=== PATIENT | female | born 2000 | race Caucasian/White ===

== ENCOUNTER 2023-05-20 18:11 | Outpatient (REF) | payer MEDICAID, OTHER, SELFPAY ==
[2023-05-21 11:32] LABS: CT PCR NOT DETECTED (Not Detect.); NG PCR NOT DETECTED (Not Detect.)
[2023-05-21 13:10] LABS: BV Int Neg Control Negative (Negative); BV Int Pos Control Positive (Positive)
== END 2023-05-20 18:12 | disposition home or self-care (01) ==
LOC: HO.HHCLNP 18:11
PROVIDERS: Visit Provider Advanced Practice Midwife
DX: Z11.3 Encounter for screening for infections with a predominantly sexual mode of transmission (principal); N89.8 Other specified noninflammatory disorders of vagina
CPT/HCPCS: 0353U; 87480; 87510; 87660

== ENCOUNTER 2023-07-17 13:57 | Outpatient (REF) | payer MEDICAID, OTHER, SELFPAY | END 2023-07-17 13:58 | disposition home or self-care (01) | LOC: HO.CHCLDS 13:57 | PROVIDERS: Visit Provider Registered Nurse | DX: R39.9 Unspecified symptoms and signs involving the genitourinary system (principal); N89.8 Other specified noninflammatory disorders of vagina | CPT/HCPCS: 36415; 81513; 87086 ==

== ENCOUNTER 2023-07-23 16:20 | Outpatient (REF) | payer MEDICAID, OTHER, SELFPAY ==
[2023-07-24 09:21] LABS: BV Int Neg Control Negative (Negative); BV Int Pos Control Positive (Positive)
== END 2023-07-23 16:21 | disposition home or self-care (01) ==
LOC: HO.CHCLNP 16:20
PROVIDERS: Visit Provider Registered Nurse
DX: N89.8 Other specified noninflammatory disorders of vagina (principal)
CPT/HCPCS: 87480; 87510; 87660

== ENCOUNTER 2024-01-25 19:45 | Outpatient (REF) | payer MEDICAID, OTHER, SELFPAY ==
[2024-01-27 23:59] LABS: C. trachomatis RNA TMA NOT DETECTED (NOT DETECTED); Candida glabrata RNA NOT DETECTED (NOT DETECTED); Candida species RNA DETECTED (NOT DETECTED); N. gonorrhoeae RNA TMA NOT DETECTED (NOT DETECTED); Trichomonas vaginalis RNA NOT DETECTED (NOT DETECTED)
== END 2024-01-25 19:46 | disposition home or self-care (01) ==
LOC: HO.CHCLNP 19:45
PROVIDERS: Visit Provider Registered Nurse
DX: N94.9 Unspecified condition associated with female genital organs and menstrual cycle (principal)
CPT/HCPCS: 36415; 81513; 87481; 87491; 87591; 87661

== ENCOUNTER 2024-04-19 14:25 | Outpatient (REF) | payer MEDICAID, OTHER, SELFPAY ==
[2024-04-19 16:25] LABS: Bacterial Vaginosis PCR NEGATIVE (Negative); Candida Group PCR DETECTED (Not Detect); Candida glab krusei PCR NOT DETECTED (Not Detect); Trichomonas vaginalis PCR NOT DETECTED (Not Detect)
== END 2024-04-19 14:26 | disposition home or self-care (01) ==
LOC: HO.HHCLNP 14:25
PROVIDERS: Visit Provider Advanced Practice Midwife
DX: R87.612 Low grade squamous intraepithelial lesion on cytologic smear of cervix (LGSIL) (principal); N90.89 Other specified noninflammatory disorders of vulva and perineum
CPT/HCPCS: 0352U; 36415; 87625; 88175

== ENCOUNTER 2024-04-22 15:46 | Outpatient (REF) | payer MEDICAID, OTHER, SELFPAY ==
[2024-04-22 18:10] LABS: MANUAL DIFF FLAG NO
[2024-04-22 18:15] LABS: Basophils Absolute Auto 0.1 X10*3/uL (0.0-0.2); Eosinophils Absolute Auto 0.1 X10*3/uL (0.0-0.4); Eosinophils Percent Auto 0.8 % (0-4); Hematocrit 39.2 % (37.0-47.0); Hemoglobin 13.5 g/dl (12.0-16.0); Imm Gran Abs Auto 0.01 X10*3/uL (0.00-0.03); Imm Gran Pct Auto 0.2 % (0.0-0.4); Lymphocytes Absolute Auto 2.5 X10*3/uL (1.2-4.9); Mean Corpuscular HGB Conc 34.4 g/dl (31.0-35.0); Mean Corpuscular Hemoglobin 29.3 pg (27.0-33.0); Mean Corpuscular Volume 85.2 fL (80.0-98.0); Mean Platelet Volume 9.8 fL (9.4-12.3); Monocytes Absolute Auto 0.5 X10*3/uL (0.1-1.2); Monocytes Percent Auto 7.6 % (2-11); Neutrophils Absolute Auto 3.1 x10*3/uL (2.0-8.3); Neutrophils Percent Auto 50.4 % (45-73); Platelet Count 293 X10*3/uL (160-400); Red Cell Distribution Width 12.9 % (11.0-16.0); White Blood Count 6.2 X10*3/uL (4.8-10.8)
[2024-04-22 18:25] LABS: Alanine Aminotransferase 17 U/L (0-31); Alkaline Phosphatase 41 U/L (39-117); Anion Gap 11 (12-20); Aspartate Amino Transferase 23 U/L (5-31); Bilirubin Total 0.2 mg/dL (0.0-1.0); Blood Urea Nitrogen 11 mg/dL (9-16); Calcium 9.7 mg/dL (8.4-10.2); Carbon Dioxide 24 mmol/L (22-29); Chloride 108 mmol/L (96-108); Estimated Glomerular Filt Rate > 60; Glucose Random 121 mg/dL (60-115); Potassium 3.8 mmol/L (3.3-5.1); Sodium 139 mmol/L (135-145); Total Protein 7.8 g/dL (6.5-8.0)
[2024-04-23 07:11] LABS: Estimated Average Glucose 91 mg/dL; Hemoglobin A1c % 4.8 % (<6.0)
[2024-04-25 08:23] LABS: HIV AB/AG Nonreactive (Nonreactive); HIV Num 1 0.06 S/CO (0.00-0.99)
[2024-04-25 12:44] LABS: RPR Rapid Plasma Reagin NON-REACTIVE (NON-REACTIVE)
[2024-04-26 09:18] LABS: HCV Log PCR <1.18 NOT DETECTED Log IU/mL (NOT DETECTED); HepC Viral Load <15 NOT DETECTED IU/mL (NOT DETECTED)
== END 2024-04-22 15:47 | disposition home or self-care (01) ==
LOC: HO.HHCL 15:46
PROVIDERS: Registered Nurse; Visit Provider Advanced Practice Midwife
DX: B37.31 Acute candidiasis of vulva and vagina (principal); Z11.3 Encounter for screening for infections with a predominantly sexual mode of transmission; N94.9 Unspecified condition associated with female genital organs and menstrual cycle
CPT/HCPCS: 36415; 80053; 83036; 85025; 86592; 87389; 87522

== ENCOUNTER 2024-06-24 18:08 | Outpatient (REF) | payer MEDICAID, OTHER, SELFPAY ==
[2024-06-25 12:43] LABS: CT PCR NOT DETECTED (Not Detect.); NG PCR NOT DETECTED (Not Detect.)
[2024-06-25 16:32] LABS: Bacterial Vaginosis PCR NEGATIVE (Negative); Candida Group PCR NOT DETECTED (Not Detect); Candida glab krusei PCR NOT DETECTED (Not Detect); Trichomonas vaginalis PCR NOT DETECTED (Not Detect)
== END 2024-06-24 18:09 | disposition home or self-care (01) ==
LOC: HO.CHCLNP 18:08
PROVIDERS: Visit Provider Registered Nurse
DX: N94.9 Unspecified condition associated with female genital organs and menstrual cycle (principal)
CPT/HCPCS: 0352U; 87491; 87591

== ENCOUNTER 2024-12-29 09:21 | Outpatient (REF) | payer MEDICAID, OTHER, SELFPAY ==
--- OUTSIDE RECORDS SUMMARY | 2024-12-29 10:13 | XMS_ITS | Encounter Summary ---
Author Organization [employer] Address [address] [facility] [address] [place] [address] Care Team Providers Care Flexible Machining System Machinist Name Role Phone Zora Coley Primary Care Provider [phone] Reason for Visit * Reason Onset Date Comments Appointment Request 02/12/2024 Encounter Details Date Type Department Care Team ([facility] st Contact Info) Description 02/12/2024 Telephone [facility] MED[facility] [address] [place] [address] Zora Coley FNP [address] [place], [place] [id number] Appointment Request Social History Tobacco Use Types Packs/Day Years Used Date Smoking Tobacco: Never Passive Smoke Exposure: Never Smokeless Tobacco: Never Alcohol Use Standard Drinks/Week Comments Never 0 (1 standard drink = 0.6 oz pur e alcohol) Depression Answer Date Recorded Patient Health Questionnaire-9 Score 10 01/25/2024 Patient Health Questionnaire-9 Score 10 01/25/2024 Last PHQ-9: Questionnaire Data Not on file 0 01/25/2024 Housing Stability Answer Date Recorded What is your housing situation today? I have chaz branham 01/25/[address] you li ve. Do you have problems with any of the following? None of the above 01/25/2024 Food Insecurity Answer Date Recorded Within the past 12 months, y ou worried that your food would run out before you got money to buy more: Never True 01/25/2024 Within the past 12 months,th e food you bought just didn't last and you didn't have enough money to get more: Never True 02/2024 Transportation Answer Date Recorded In the past 12 months, has l ack of transportation kept you from medical appts, meetings, work or from getting things needed for daily living? No 01/25/2024 Utilities Answer Date Recorded In the past 12 months, has t he electric, gas, oil or water company threatened to shut off services in your home? No 01/25/2024 Depression Answer Date Recorded Patient Health Questionnaire-2 Score 1 01/25/2024 Comments Unknown Sex and Gender Information Value Date Recorded Sex Assigned at Female 07/21/2022 10:39 AM EDT Legal Sex Female 10:39 AM EDT Gender Identity Female 11/08/2022 1:20 PM EST Sexual Orientation Choose not to disclose 2021 10:39 AM EDT documented as of this encounter Miscellaneous Notes * Telephone Encounter - Memo Jaramillo - 02/23/2024 12:05 PM EDT Tc from pt requesting status performance management consultant. * Telephone Encounter - Adan James - 02/18/2024 2:19 PM EDT Tc from patient calling in regards to the message below * Telephone Encounter - Nora Rausch - 02/12/2024 10:51 AM EDT Tc from pt requesting appt with PCP per last visit notes, leader writer not sure if should schedule a PE or a PAP documented in this encounter Plan of Treatment Upcoming Encounters Date Type Department Care Team (Late st Contact Info) Description 02/06/2025 3:15 PM EDT Office Visit [facility] MED & PEDS [address] [place] [address] Zora Coley FNP [address] [place] [address] documented as of this encounter Visit Diagnoses Not on filedocumented in this encounter Additional Health Concerns Assessment Noted Time PHQ-9 Depression Total Score: 10 024 8:57 PM EDT documented as of this encounter Care Teams Flexible Machining System Machinist Relationship Specialty Start Date End Date Zora Coley FNP [address] [place] [address] PCP - General Family Medicine 05/18/22 documented as of this encounter
--- OUTSIDE RECORDS SUMMARY | 2024-12-29 10:13 | XMS_ITS | Encounter Summary ---
Author Organization [employer] Address [address] [facility] [address] [place] [address] Care Team Providers Care Cap Sizer Name Role Phone Zora Coley Primary Care Provider [phone] Reason for Visit * Reason Onset Date Comments Lab Orders 12/28/2024 Encounter Details Date Type Department Care Team ([facility] st Contact Info) Description 12/28/2024 Telephone [facility] MED & PEDS [address] [place], [place] [phone] Zora Coley FNP [address] [place] [address] Lab Orders Social History Tobacco Use Types Packs/Day Years Used Date Smoking Tobacco: Never Passive Smoke Exposure: Never Smokeless Tobacco: Never Alcohol Use Standard Drinks/Week Comments Never 0 (1 standard drink = 0.6 oz pur e alcohol) Depression Answer Date Recorded Patient Health Questionnaire-9 Score 6 06/24/2024 Patient Health Questionnaire-9 Score 6 06/24/2024 Last PHQ-9: Questionnaire Data Not on file 1 Housing Stability Answer Date Recorded What is [...] Answer Date Recorded Patient Health Questionnaire-2 Score 2 06/24/2024 Internet Access Answer Date Recorded Internet Access Q1 Yes 06/24/2024 Internet Access Q2 Not on file 06/24/2024 Comments Unknown Sex and Gender Information Value Date Recorded Sex Assigned at Female 07/21/2022 10:39 AM EDT Legal Sex Female 10:39 AM EDT Gender Identity Female 11/08/2022 1:20 PM EST Sexual Orientation Choose not to disclose 2021 10:39 AM EDT documented as of this encounter Miscellaneous Notes * Telephone Encounter - Clark Benitez MA - 12/28/2024 2:26 PM EDT T/C to pt to let he know message below. 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 Lab has been ordered, she can complete at her earliest convenience. Thanks! documented in this encounter Plan of Treatment Upcoming Encounters Date Type Department Care Team ([facility] st Contact Info) Description 02/06/2025 3:15 PM EDT Office Visit [facility] MED & PEDS [address] [place] [address] Zora Coley FNP [address] [place] [address] documented as of this encounter Visit Diagnoses Not on filedocumented in this encounter Additional Health Concerns Assessment Noted Time PHQ-9 Depression Total Score: 6 06/24/20 24 9:59 AM EDT documented as of this encounter Care Teams Cap Sizer Relationship Specialty Start Date End Date Zora Coley FNP [address] [place] [id number] PCP - General Family Medicine 05/18/22 documented as of this encounter
--- OUTSIDE RECORDS SUMMARY | 2024-12-29 10:13 | XMS_ITS | Encounter Summary ---
Author Organization [facility] Address [address] [facility] [address] [place] [address] Care Team Providers Care Specifications Checker Name Role Phone Zora Coley Primary Care Provider [phone] Encounter Details Date Type Department Care Team (Latest Contact Info) Description 08/09/2021 Abstract [facility] CONVERSIONS Dental, Provider, DDS Social History Tobacco Use Types Packs/Day Years Used Date Smoking Tobacco: Never Assessed Comments Unknown Sex and Gender Information Value Date Recorded Sex Assigned at Female 07/21/2022 10:39 AM EDT Legal Sex Female 10:39 AM EDT Gender Identity Female 11/08/2022 1:20 PM EST Sexual Orientation Choose not to disclose 2021 10:39 AM EDT documented as of this encounter Plan of Treatment Upcoming Encounters Date Type Department Care Team (Late st Contact Info) Description 02/06/2025 3:15 PM EDT Office Visit [facility] MED & PEDS [address] [place] [address] Zroa Coley FNP [address] [place] [address] documented as of this encounter Visit Diagnoses Not on filedocumented in this encounter Care Teams Specifications Checker Relationship Specialty Start Date End Date Zora Coley FNP [address] [place] [address] PCP - General Family Medicine 05/18/22 documented as of this encounter
--- OUTSIDE RECORDS SUMMARY | 2024-12-29 10:13 | XMS_ITS | Encounter Summary ---
Author Organization [employer] Address [address] [place] [address] Care Team Providers Care Bridge/Structure Inspection Team Leader Name Role Phone Zora Coley Primary Care Provider [phone] Reason for Visit * Reason Onset Date Comments Lab Orders 07/20/2023 Encounter Details Date Type Department Care Team ([facility] st Contact Info) Description 07/20/2023 Telephone [facility] MED[facility] [address] [place] [address] Zora Coley FNP [address] [place], [place] [phone] Lab Orders Social History Tobacco Use Types Packs/Day Years Used Date Smoking Tobacco: Never Passive Smoke Exposure: Never Smokeless Tobacco: Never Alcohol Use Standard Drinks/Week Comments Never 0 (1 standard drink = 0.6 oz pur e alcohol) Depression Answer Date Recorded Patient Health Questionnaire-9 Score 0 10/09/2022 Housing Stability Answer Date Recorded What is your housing situation today? I have chaz branham 07/06/[address] you li ve. Do you have problems with any of the following? None of the above 07/06/2023 Food Insecurity Answer Date Recorded Within the past 12 months, y ou worried that your food would run out before you got money to buy more: Never True 07/06/2023 Within the past 12 months,th e food you bought just didn't last and you didn't have enough money to get more: Never True Transportation Answer Date Recorded In the past 12 months, has l ack of transportation kept you from medical appts, meetings, work or from getting things needed for daily living? No 07/06/2023 Utilities Answer Date Recorded In the past 12 months, has t he electric, gas, oil or water company threatened to shut off services in your home? No 07/06/2023 Depression Answer Date Recorded Patient Health Questionnaire-2 Score 0 10/09/2022 Comments Unknown Sex and Gender Information Value Date Recorded Sex Assigned at Female 07/21/2022 10:39 AM EDT Legal Sex Female 10:39 AM EDT Gender Identity Female 11/08/2022 1:20 PM EST Sexual Orientation Choose not to disclose 2021 10:39 AM EDT documented as of this encounter Miscellaneous Notes * Telephone Encounter - Adan James - 07/20/2023 2:13 PM EDT Tc from Lynn at the chemical lab from [facility] calling to report that she was unable to perform a SureSwab BV test due to specimen transport device did not contain swab. Php Mysql Web Developer attempted to contact office and no reply. If any questions please call Lynn at [phone] documented in this encounter Plan of Treatment Upcoming Encounters Date Type Department Care Team (Late st Contact Info) Description 02/06/2025 3:15 PM EDT Office Visit [facility] MED & PEDS [address] [place] [address] Zora Coley FNP [address] [place] [address] documented as of this encounter Visit Diagnoses Not on filedocumented in this encounter Additional Health Concerns Assessment Noted Time PHQ-9 Depression Total Score: 0 10/09/19 23 11:23 AM EST documented as of this encounter Care Teams Bridge/Structure Inspection Team Leader Relationship Specialty Start Date End Date Zora Coley FNP [address] [place] [address] PCP - General Family Medicine 05/18/22 documented as of this encounter
--- OUTSIDE RECORDS SUMMARY | 2024-12-29 10:13 | XMS_ITS | Clinical Summary ---
Author Organization [employer] Address [address] [facility] 7t [place] [address] Care Team Providers Care Accounting Systems Analyst Name Role Phone Zora oCley CLINICAL EDUCATION SPECIALIST Primary Care Provider [phone] Allergies No known active allergies Medications amitriptyline (Elavil) 10 MG tabletIndicatio ns:Tension Headache Take 10 mg by mouth at bedtime. Active norelgestromin- ethinyl estradiol (Xulane) 150-35 MCG/24HRIndicat ions:Encounter for routine history and physical examination of adult APPLY 1 PATCH TO CLEAN DRY SKIN ONCE A WEEK ON THE SAME DAY FOR 3 WEEKS. REMOVE FOR 1 WEEK, THEN RESTART CYCLE. 9 patch 3 12/10/19 25 Active norelgestromin- ethinyl estradiol (Xulane) 150-35 MCG/24HRIndicat ions:Encounter for routine history and physical examination of adult APPLY 1 PATCH TO CLEAN DRY SKIN ONCE A WEEK ON THE SAME DAY FOR 3 WEEKS. REMOVE FOR 1 WEEK, THEN RESTART CYCLE. 3 patch 3 10/05/19 25 025 Discontinued(Re order (will not trigger notification to Pharmacy)) Active Problems Problem Noted Date Diagnosed Date Chronic pain of both knees 06/26/2024 Assessment & Plan (06/26/2024 11:03 AM EDT): - Chronic, atraumatic; exam unremarkable. Suspect from overuse/extended periods of time standing - Rec trial of compression socks when on feet all day, breaks PRN - Cont symptomatic management - Will check XR out of precaution - Consider physical therapy and/or Ortho referral if pt interested in future Routine health maintenance 11/06/2022 Overview (06/26/2024): Pap: November 2022 LSIL, March 2024 NILM. Repeat: March 2025 Last PE: 06/24/24 Dental: [facility] Dental Contraception: control patches (previously using Nexplanon) Eye Care: referral to [facility] Eye Care for routine screening 06/24/24. List of local Vision Centers also provided Assessment & Plan (06/26/2024 11:07 AM EDT): Plan to get HPV and Flu vaccine at [facility] pharmacy today after visit Recurrent headache 10/09/2022 Overview (06/26/2024): -Amitriptyline 10mg nightly Assessment & Plan (06/26/2024 10:57 AM EDT): -Pt reports that she is using very sporadically, but that is helping to control her symptoms -Cont lifestyle interventions as well Assessment & Plan (08/23/2023 9:58 PM EST): -Previously experiencing 8-12 ROMERO per month. Decreased to 1-2 per month with initiation of amitriptyine 10mg nightly. However, pt not interested in tx with daily medication at this time -Cont APAP/ibuprofen episodic tx PRN -Encouraged to continue multi-factorial approach: small frequent meals, adequate hydration, adequate sleep, stress management, regular exercise as able Abnormal cervical Papanicolaou smear 06/25/2021 Overview (06/26/2024): Pap 12/08/22 LSIL Pap 04/19/24 NILM Next due: plan to repeat March 2025 Resolved Problems Problem Noted Date Diagnosed Date Resolved Date Dental plaque 08/21/2023 06/26/[address] 10/09/2022 Overview (10/09/2022): - Counseled patient that her Nexplanon may remain in place until August of 2023 and it may be removed at any point prior to this if she chooses. She would like to keep this in place for now. Discussed that she may have this removed and replaced at [facility] if she chooses Impacted cerumen of right ear 09/23/2022 07/17/2023 Overview (09/23/2022): Irrigated wihout difficulty. Sympoms resuloved. Assessment & Plan (10/09/2022 11:28 AM EST): Resolved. Assessment & Plan (09/23/2022 9:51 AM EST): Irrigated wihout difficulty. Sympoms or blockage resolved. Mild irrittation possibly from irrigation. Return in 2 weeks for recheck of TM to confirm abnormality is irritation from irrigation. If persists, will refer to ENT. Encounters Date Type Department Care Team Description 12/28/2024 Telephone [facility] MED & PEDS [address] [place] [address] Zora Coley FNP Lab Orders 12/23/2024 Orders Only [facility] MED & PEDS [address] [place] [address] Zora Coley FNP Routine health maintenance (Primary Dx) 12/09/2024 Refill [facility] MEDICINE [address] [place] [address] Zora Coley FNP Encounter for routine history and physical examination of adult 11/29/2024 Telephone [facility] MED & PEDS [address] [place] [address] Zora Coley FNP December recall 10/05/2024 3:00 PM EST Immunization [facility] MED & PEDS [address] [place] [address] Encounter for immunization 10/05/2024 11:15 AM EST Office Visit [facility] OPTOMETRY [address] [place] [address] Tarka, Nilam, OD Hypermetropia, bilateral (Primary Dx); Recurrent headache 10/05/2024 Travel 10/05/2024 Refill [facility] MEDICINE [address] [place] [address] Zora Coley FNP Encounter for routine history and physical examination of adult from Last 3 Months Immunizations Name Administration Dates Next Due HPV 9-Valent 10/05/2024,06/24/2024 Influenza injectable quadriv alent preservative free 07/17/2023,10/09/2022,07/03/2021 Influenza, Injectable, MDCK, preservative free 06/24/2024 Pfizer Covid-19 Vaccine 12+ 01/26/2021, Tdap 07/17/2023 Family History Medical History Relation Name Comments epilepsy Mother Relation Name Status Comments Mother Social History Tobacco Use Types Packs/Day Years Used Date Smoking Tobacco: Never Passive Smoke Exposure: Never Smokeless Tobacco: Never Tobacco Cessation:Counseling Given: Not Answered Alcohol Use Standard Drinks/Week Comments Never 0 [...] not to disclose 2021 10:39 AM EDT Last Filed Vital Signs Vital Sign Reading Time Taken Comments Blood Pressure 115/72 06/24/2024 9:54 AM EDT Pulse 68 06/24/2024 9:54 AM EDT Temperature 36.2 ??C (97.2 ??F) 06/24/2024 9:54 AM ED T Respiratory Rate 18 06/24/2024 9:54 AM EDT Oxygen Saturation 98% 06/24/2024 9:54 AM EDT Inhaled Oxygen Concentration - - Weight 62.7 kg (138 lb 2 oz) 06/24/2024 9:54 AM EDT Height 159.9 cm (5' 2.95 ) 06/24/2024 9:54 AM ED T Body Mass Index 24.51 06/24/2024 9:54 AM EDT Plan of Treatment Upcoming Encounters Date Type Department Care Team (Late st Contact Info) Description 02/06/2025 3:15 PM EDT Office Visit [facility] MED & PEDS [address] [place] [address] Zora Coley, VIVEK [address] [place] [address] Health Maintenance Due Date Last Done Comments Hepatitis B Vaccines (1 of 3 - 19+ 3-dose series) 2017 Dental Oral Exam 01/27/2024 07/28/2023, 07/23/2021 Dental Prophylaxis 02/21/2024 08/21/2023, 08/09/2021 COVID-19 Vaccine ( season) 2024 10/01/2021, 01/26/2021, 01/05/2021 Dental X-Ray: Full Mouth 07/24/2024 07/23/2021 Dental X-Ray: Bitewings 07/29/2024 07/28/2023, 07/23 HPV Vaccines (3 - 3-dose series) 12/28/2024 10/05/2024, 06/24/2024 Family Planning (PISQ) 04/19/2025 04/19/2024 Alcohol/Substance Use Screening 06/24/2025 06/24/2024 Depression Screening 06/24/2025 06/24/2024, 06/24/20 SDOH Screening 06/24/2025 06/24/2024 Tobacco Screening 10/05/2025 10/05/2024 Pap Smear 04/19/2027 04/19/2024, 11/20, 06/18/2021 DTaP/Tdap/Td Vaccines (2 - Td or Tdap) 07/17/2033 07/17/2023 Zoster Vaccines (1 of 2) 2048 RSV Patients and Patients Aged 60 years or older (1 - 1-dose 75+ series) 2073 HIV Screening Completed 04/22/2024, 10/23, 06/18/2021 Hepatitis C Screening Completed 04/22/2024 , 11/11/2022, 06/18/2021 Influenza Vaccine Completed 06/24/2024, , 10/09/2022, Additional history exists HIB Vaccines Aged Out No longer eligi ble based on patient's age to complete this topic Hepatitis A Vaccines Aged Out No long er eligible based on patient's age to complete this topic IPV Vaccines Aged Out No longer eligi ble based on patient's age to complete this topic Meningococcal Vaccine Aged Out No margarette nba eligible based on patient's age to complete this topic Pneumococcal Vaccine: Pediatrics (0 to 5 Years) and At-Risk Patients (6 to 49) Years) Aged Out No longer eligible based on patient's age to complete this topic RSV under 20 months Aged Out No longe r eligible based on patient's age to complete this topic Rotavirus Vaccines Aged Out No longer eligible based on patient's age to complete this topic Procedures Procedure Name Priority Date/Time Associated Diagnosis Comments HEPATITIS C VIRAL RNA, QUANTITATIVE, REAL-TIME PCR Routine 04/22/2024 3:50 PM EDT Genital sore HIV 1/2 ANTIGEN/ANTIBODY, FOURTH GENERATION W/RFL Routine 04/22/2024 3:50 PM EDT Genital sore THINPREP?? IMAGING PAP REFL HPV MRNA(IF ASCUS,ASC-H,LSIL) Routine 04/19/2024 10:46 AM EDT LGSIL on Pap smear of cervix PROPHYLAXIS - ADULT Routine 08/21/2023 8 :00 AM EST BITEWINGS - 4 RADIOGRAPHIC IMAGES Routine 07/28/2023 8:00 AM EST Encounter for dental examination Teeth missing Dental calculus PERIODIC ORAL EVALUATION - ESTABLISHED PATIENT Routine 07/28/2023 8:00 AM EST Encounter for dental examination Teeth missing Dental calculus INTRAORAL - COMPLETE SERIES OF RADIOGRAPHIC IMAGES Routine 07/23/2021 12:00 AM EDT from Last 3 Months or Most Recently Relevant to Health Maintenance Results * Hepatitis C Viral RNA, Quantitative, Real-Time PCR (04/22/2024 3:50 PM EDT) Hepatitis C Viral Load <15 NOT DETECTED NOT DETECTED IU/mL [facility] HCV Log PCR <1.18 NOT DETECTED NOT DETECTED Log IU/mL [facility] Comment:For additional infor aliya, please refer tohttp://education.[employer]/faq/NHG84w9(This link is being provided for informational/educational purposes only.)THIS TEST WAS PERFORMED AT:[facility] [place] [id number] MOLINA MD Blood 04/22/2024 3:50 PM EDT 04/22/2024 6:06 PM EDT Zora Coley CLINICAL EDUCATION SPECIALIST LAB BLOOD ORDERABLES Final Res ult [facility] [address] [place] [phone] * HIV-1/2 Antigen and Antibodies, Fourth Generation, with Reflexes (04/22/2024 3:50 PM EDT) HIV AB/AG Nonreactive Nonreactive [facility] Comment:HIV-1 p24 Ag and/or HIV-1/HIV-2 Ab not detected.A test result that is nonreactive does not exclude thepossibility of exposure to or infection with HIV-1 and/orHIV-2. Nonreactive results in this assay for individualswith prior exposure to HIV-1 and/or HIV-2 may be due toantigen and antibody levels that are below the limit ofdetection of this assay.The [employer] HIV Ag/Ab Combo assay result andsupplemental assay results should be interpreted inconjunction with the patient's clinical presentation,history and other laboratory results. If the results areinconsistent with clinical evidence, additional testing issuggested to confirm the result. Blood Venous blood specimen / Unknown 04/22/2024 3:50 PM EDT 04/22/2024 6:04 PM EDT us Zora Coley [facility] LAB BLOOD ORDERABLES Final Res ult [facility] [address] [place] [address] [phone] * Pap with reflex HPV (04/19/2024 10:46 AM EDT) HPV nRNA E6/E7 [facility] HPV 16,18/45 [facility] SOURCE: SEE NOTE [facility] Comment:None given Report Status: [facility] Clinical Information: SEE NOTE [facility] Comment:None given LMP: SEE [facility] Comment:NONE GIVEN Prev. PAP: SEE NOTE [facility] Comment:NONE GIVEN Prev. BX: SEE NOTE [facility] Comment:NONE GIVEN Statement Of Adequacy: SEE [facility] Comment:Satisfactory for omid luation.Endocervical/transformation zone componentpresent. General Categorization: [facility] Interpretation/Result: SEE NOTE [facility] Comment:Cytology Results: Ne gative for intraepitheliallesion or malignancy. Cytology Comment SEE NOTE [facility] Comment:This Pap test has be en evaluated with computerassisted technology. Brine Process Operator: SEE NOTE [facility] Comment:MSM, CT(ASCP)CT scre ening location: [place] [address] Review Brine Process Operator: SEE NOTE [facility] Comment:DCR, CT(ASCP)CT scre ening location: [address] [address] Pathologist TNP [facility] PAP Infection SEE NOTE [facility] Comment:Fungal organisms mor phologically consistent withCandida spp. See Note SEE NOTE [facility] Comment:EXPLANATORY NOTE:The Pap is a screening test for cervical cancer. It isnot a diagnostic test and is subject to false negativeand false positive results. It is most reliable when asatisfactory sample, regularly obtained, is submittedwith relevant clinical findings and history, and whenthe Pap result is evaluated along with historic andcurrent clinical information.THIS TEST WAS PERFORMED AT:[facility] [address] [id number] MOLINA MD Pap Vial Cervix uteri structure / Unknown 04/19/2024 10:46 AM EDT 04/19/2024 2:27 PM EDT Narrative [facility] - 04/22/2024 10:19 AM EDT SEE SCANNED RESULTS IN EMR us Gretta Reaves [facility] CYTOLOGY ORDERABLES F inal Result [facility] [address] [place] [address] [phone] from Last 3 Months or Most Recently Relevant to Health Maintenance Insurance [employer] HSN FULL DENTAL-[facility] MEDICAID LIMITED ADULT DENTAL - HSN FULL (MEDICAID) * Guarantor: Vital Huizar Meredith Account Type Relation to Patient Date of Phone Billing Address Personal/Family Self [address], [place] * Guarantor: Vital Huizar Meredith Account Type Relation to Patient Date of Phone Billing Address Personal/Family Self [address] [place], [place] Care Teams Accounting Systems Analyst Relationship Specialty Start Date End Date Zora Coley FNP [address] [place] [address] PCP - General Family Medicine 05/18/22
--- OUTSIDE RECORDS SUMMARY | 2024-12-29 10:13 | XMS_ITS | Encounter Summary ---
Author Organization [employer] Address [address] [facility] 7t [place] [address] Care Team Providers Care Supervisor Tumblers Name Role Phone Zora Coley Primary Care Provider [phone] Encounter Details Date Type Department Care Team (Late st Contact Info) Description 07/22/2023 Orders Only [facility] MEDICINE [address] [place] [address] Zora Coley FNP [address] [place], [place] [phone] Social History Tobacco Use Types Packs/Day Years Used Date Smoking Tobacco: Never Passive Smoke Exposure: Never Smokeless Tobacco: Never Alcohol Use Standard Drinks/Week Comments Never 0 (1 standard drink = 0.6 oz pur e alcohol) Depression Answer Date Recorded Patient Health Questionnaire-9 Score 0 10/09/2022 Housing Stability Answer Date Recorded What is your housing situation today? I have chazelijah branham 07/06/[address] you [...] 3:15 PM EDT Office Visit [facility] MED & PEDS [address] [place] [address] Zora Coley FNP [address] [place] [address] documented as of this encounter Visit Diagnoses Not on filedocumented in this encounter Additional Health Concerns Assessment Noted Time PHQ-9 Depression Total Score: 0 10/09/19 23 11:23 AM EST documented as of this encounter Care Teams Supervisor Tumblers Relationship Specialty Start Date End Date Zora Coley FNP [address] [place] [address] PCP - General Family Medicine 05/18/22 documented as of this encounter
[2024-12-29 12:19] LABS: Alanine Aminotransferase 16 U/L (0-31); Albumin Level 3.9 g/dL (3.5-5.0); Alkaline Phosphatase 40 U/L (39-117); Anion Gap 11 (12-20); Aspartate Amino Transferase 27 U/L (5-31); Bilirubin Total 0.3 mg/dL (0.0-1.0); Blood Urea Nitrogen 11 mg/dL (9-16); Calcium 9.3 mg/dL (8.4-10.2); Carbon Dioxide 24 mmol/L (22-29); Chloride 108 mmol/L (96-108); Cholesterol 184 mg/dL (<200); Estimated Glomerular Filt Rate > 60; Glucose Random 80 mg/dL (60-115); HDL Cholesterol 63 mg/dL (>40); LDL Cholesterol Calculated 101 mg/dL (<100); Potassium 3.7 mmol/L (3.3-5.1); Sodium 139 mmol/L (135-145); Total Protein 7.6 g/dL (6.5-8.0); Triglycerides 104 mg/dL (<150)
[2024-12-29 12:22] LABS: TSH reflex Free T4 1.67 uIU/mL (0.32-4.0)
[2024-12-30 18:44] LABS: Rubella IgG Antibody 2.53 Index
== END 2024-12-29 09:22 | disposition home or self-care (01) ==
LOC: HO.HHCL 09:21
PROVIDERS: Visit Provider Registered Nurse
DX: Z00.00 Encounter for general adult medical examination without abnormal findings (principal)
CPT/HCPCS: 36415; 80053; 80061; 84443; 86735; 86762; 86765

== ENCOUNTER 2025-01-18 11:40 | Outpatient (REF) | payer MEDICAID, OTHER, SELFPAY ==
--- OUTSIDE RECORDS SUMMARY | 2025-01-18 13:16 | XMS_ITS | Encounter Summary ---
Author Organization [employer] Address [address] [facility] 7t [place] [address] Care Team Providers Care Jig And Fixture Maker Name Role Phone Zora Coley Primary Care Provider [phone] Reason for Visit * Reason Onset Date Comments Appointment Request 02/12/2024 Encounter Details Date Type Department Care Team ([facility] st Contact Info) Description 02/12/2024 Telephone [facility] MEDICINE [address] [place] [address] Zora Coley FNP [address] [place], [place] [phone] Appointment Request Social History Tobacco Use Types [...] PM EDT 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 * Telephone Encounter - Adan James - 02/18/2024 2:19 PM EDT Tc from patient calling in regards to the message below * Telephone Encounter - Nora Rausch - 02/12/2024 10:51 AM EDT Tc from pt requesting appt with PCP per last visit notes, proposal manager writer not sure if should schedule a PE or a PAP documented in this encounter Plan of Treatment Upcoming Encounters Date Type Department Care Team (Late st Contact Info) Description 02/06/2025 3:15 PM EDT Office Visit [facility] MED & PEDS [address] [place] [address] Zora Coley FNP [address] [place] [address] 02/16/2025 1:30 PM EDT Office Visit [facility] ADULT DENTAL [address] [place] [address] Radha Montenegro DDS [address] [place] [address] 07/28/2025 1:00 PM EST Office Visit [facility] ADULT DENTAL [address] [place], [place] [phone] Natacha Araya [address] [place], [place] [phone] documented as of this encounter Visit Diagnoses Not on filedocumented in this encounter Additional Health Concerns Assessment Noted Time PHQ-9 Depression Total Score: 10 024 8:57 PM EDT documented as of this encounter Care Teams Jig And Fixture Maker Relationship Specialty Start Date End Date Zora Coley FNP [address] [place], [place] [phone] PCP - General Family Medicine 05/18/22 documented as of this encounter
--- OUTSIDE RECORDS SUMMARY | 2025-01-18 13:16 | XMS_ITS | Encounter Summary ---
Author Organization [employer] Address [address] [facility] [address] [place] [address] Care Team Providers Care Steam Press Operator Name Role Phone Zora Coley Primary Care Provider [phone] Reason for Visit * Reason Onset Date Comments Lab Orders 07/20/2023 Encounter Details Date Type Department Care Team ([facility] st Contact Info) Description 07/20/2023 Telephone [facility] MEDICINE [address] [place] [address] Zora Coley FNP [address] [place], [place] [phone] Lab Orders Social History Tobacco Use Types [...] from Lynn at the chemical lab from [facility] calling to report that she was unable to perform a SureSwab BV test due to specimen transport device did not contain swab. Assistant Golf Course Superintendent attempted to contact office and no reply. If any questions please call Lynn at [phone] Ext [phone] documented in this encounter Plan of Treatment Upcoming Encounters Date Type Department Care Team (Late st Contact Info) Description 02/06/2025 3:15 PM EDT Office Visit [facility] CHC MED & PEDS [address] [place] [address] Zora Coley, LANDSCAPE HORTICULTURE INSTRUCTOR [address] [place] [address] 02/16/2025 1:30 PM EDT Office Visit [facility] ADULT DENTAL [address] [place] [address] Scott-San, Radha, DDS [address] [place] [address] 07/28/2025 1:00 PM EST Office Visit [facility] ADULT DENTAL [address] [place] [address] Marshal, Natacha [address] [place] [address] documented as of this encounter Visit Diagnoses Not on filedocumented in this encounter Additional Health Concerns Assessment Noted Time PHQ-9 Depression Total Score: 0 10/09/19 11:23 AM EST documented as of this encounter Care Teams Steam Press Operator Relationship Specialty Start Date End Date Zora Coley FNP [address] [place] [address] PCP - General Family Medicine 05/18/22 documented as of this encounter
--- OUTSIDE RECORDS SUMMARY | 2025-01-18 13:16 | XMS_ITS | Encounter Summary ---
Author Organization [employer] Address [address] [facility] 7t [place] [address] Care Team Providers Care Aircraft Line Assembler Name Role Phone Zora Coley VIVEK Primary Care Provider [phone] Encounter Details Date Type Department Care Team (Late st Contact Info) Description 01/18/2025 10:20 AM EDT Office Visit [facility] CHC MED & PEDS [address] [place] [address] Pharyngitis, unspecified etiology (Primary Dx) Social History Tobacco Use Types Packs/Day Years [...] AM EDT documented as of this encounter Last Filed Vital Signs Vital Sign Reading Time Taken Comments Blood Pressure 110/73 01/18/2025 10:42 AM EDT Pulse 78 01/18/2025 10:42 AM EDT Temperature 36.2 ??C (97.1 ??F) 01/18/2025 10:42 AM E DT Respiratory Rate 20 01/18/2025 10:42 AM EDT Oxygen Saturation 98% 01/18/2025 10:42 AM EDT Inhaled Oxygen Concentration - - Weight 67.2 kg (148 lb 3.2 oz) 01/18/2025 10:42 AM EDT Height 160 cm (5' 3 ) 01/18/2025 10:42 AM EDT Body Mass Index 26.25 01/18/2025 10:42 AM EDT documented in this encounter Plan of Treatment Upcoming Encounters Date Type Department Care Team (Late st Contact Info) Description 02/06/2025 3:15 PM EDT Office Visit [facility] CHC MED & PEDS [address] [place] [address] Zora Coley, AUTHORS MOTIVATIONAL [address] [place] [address] 02/16/2025 1:30 PM EDT Office Visit [facility] ADULT DENTAL [address] [place] [address] Radha Montenegro, DDS [address] [place] [address] 07/28/2025 1:00 PM EST Office Visit [facility] ADULT DENTAL [address] [place] [address] Natacha Araya [address] [place] [address] Scheduled Orders Name Type Priority Associated Diagnoses Orde r Schedule Mononucleosis Test, Qualitative Lab Routine Pharyngitis, unspecified etiology Expected: 01/18/2025 (Approximate), Expires: 01/18/2026 HIV-1/2 Antigen and Antibodies, Fourth Generation, with Reflexes Lab Routine Pharyngitis, unspecified etiology Expected: 01/18/2025 (Approximate), Expires: 01/18/2026 Pertussis Bordetella/ parapertussis PCR Lab Routine Pharyngitis, unspecified etiology Ordered: 01/18/2025 documented as of this encounter Visit Diagnoses Diagnosis Pharyngitis, unspecified etiology- Primary documented in this encounter Additional Health Concerns Assessment Noted Time PHQ-9 Depression Total Score: 6 06/24/20 24 9:59 AM EDT documented as of this encounter Care Teams Aircraft Line Assembler Relationship Specialty Start Date End Date Zora Coley FNP [address] [place] [address] PCP - General Family Medicine 05/18/22 documented as of this encounter
--- OUTSIDE RECORDS SUMMARY | 2025-01-18 13:16 | XMS_ITS | Encounter Summary ---
Author Organization [employer] Address [address] [facility] [facility] [address] [place] [address] Care Team Providers Care It Operations Specialist Name Role Phone Zora Coley Primary Care Provider [phone] Encounter Details Date Type Department Care Team (Late st Contact Info) Description 07/22/[address] [facility] MEDICINE [address] [place] [address] Zora Coley FNP [address] [place], [place] [phone] Social History Tobacco Use Types Packs/Day Years [...] Description 02/06/2025 3:15 PM EDT Office Visit [facility] CHC MED & PEDS [address] [place] [address] Zora Coley FNP [address] [place] [address] 02/16/2025 1:30 PM EDT Office Visit [facility] ADULT DENTAL [address] [place] [address] Scott-San, Radha, DDS [address] [place] [address] 07/28/2025 1:00 PM EST Office Visit [facility] ADULT DENTAL [address] [place] [address] Marshal, Natacha [address] [place] [address] documented as of this encounter Visit Diagnoses Not on filedocumented in this encounter Additional Health Concerns Assessment Noted Time PHQ-9 Depression Total Score: 0 10/09/19 23 11:23 AM EST documented as of this encounter Care Teams It Operations Specialist Relationship Specialty Start Date End Date Zora Coley FNP [address] [place] [address] PCP - General Family Medicine 05/18/22 documented as of this encounter
--- OUTSIDE RECORDS SUMMARY | 2025-01-18 13:16 | XMS_ITS | Encounter Summary ---
Author Organization [employer] [facility] Address [address] [facility] 7 [place] [address] Care Team Providers Care Front Office Associate Name Role Phone Zora Coley Primary Care Provider [phone] Encounter Details Date Type Department Care Team (Latest Contact Info) Description 08/09/2021 Abstract [facility] CONVERSIONS Dental, Provider, DDS Social History [...] Description 02/06/2025 3:15 PM EDT Office Visit [facility] CHC MED & PEDS [address] [place] [address] oZra Coley FNP [address] [place] [address] 02/16/2025 1:30 PM EDT Office Visit [facility] ADULT DENTAL [address] [place] [address] Scott-SanRadha, DDS [address] [place] [address] 07/28/2025 1:00 PM EST Office Visit [facility] ADULT DENTAL [address] [place] [address] Natacha Araya [address] [place] [address] documented as of this encounter Visit Diagnoses Not on filedocumented in this encounter Care Teams Front Office Associate Relationship Specialty Start Date End Date Zora Coley FNP [address] [place] [address] PCP - General Family Medicine 05/18/22 documented as of this encounter
--- OUTSIDE RECORDS SUMMARY | 2025-01-18 13:16 | XMS_ITS | Clinical Summary ---
Author Organization [employer] Address [address] [facility] 7t [place] [address] Care Team Providers Care Photoflash Powder Mixer Name Role Phone Zora Coley [facility] Primary Care Provider [phone] Allergies No known active allergies Medications amitriptyline (Elavil) 10 MG tabletIndication s:Tension Headache Take 10 mg by mouth at bedtime. Active norelgestromin-e thinyl estradiol (Xulane) 150-35 MCG/24HRIndicati ons:Encounter for routine history and physical examination of adult APPLY 1 PATCH TO CLEAN DRY SKIN ONCE A WEEK ON THE SAME DAY FOR 3 WEEKS. REMOVE FOR 1 WEEK, THEN RESTART CYCLE. 9 patch 3 5 Active ibuprofen 400 MG tablet Take 1 tablet (400 mg) by mouth every 6 (six) hours if needed for moderate pain or fever for up to 30 doses. 30 tablet 5 Active Active Problems Problem Noted Date Diagnosed Date Dental plaque 01/11/2025 Teeth missing 01/11/2025 Dental calculus 01/11/2025 Gingival bleeding 01/11/2025 Chronic pain of both knees 06/26/2024 Assessment [...] Repeat: March 2025 Last PE: 06/24/24 Dental: [facility] Dental Contraception: control patches (previously using Nexplanon) Eye Care: referral to [facility] Eye Care for routine screening 06/24/24. List of local Vision Centers also provided Assessment & Plan (06/26/2024 11:07 AM EDT): Plan to get HPV and Flu vaccine at [facility] pharmacy today after visit Recurrent headache 10/09/2022 [...] may have this removed and replaced at [facility] if she chooses Impacted cerumen of [...] Encounters Date Type Department Care Team Description 01/18/2025 10:20 AM EDT Office Visit [facility] MED & PEDS [address] [place] [address] Pharyngitis, unspecified etiology (Primary Dx) 01/18/2025 Travel 01/18/2025 Telephone [facility] MEDICINE [address] [place] [phone] Zora Coley FNP ER Follow-up; Transition Of Care (Tcm) 01/11/2025 1:00 PM EDT Office Visit [facility] ADULT DENTAL [address] [place] [address] Natacha Araya Dental plaque (Primary Dx); Teeth missing; Dental calculus; Gingival bleeding; Secondary dental caries 12/28/2024 Telephone [facility] MED & PEDS [address] [place] [address] Zora Coley FNP Lab Orders 12/23/2024 Orders Only [facility] MED & PEDS [address] [place] [address] Zora Coley FNP Routine health maintenance (Primary Dx) 12/09/2024 Refill [facility] MEDICINE [address] [place] [phone] Zora Coley FNP Encounter for routine history and physical examination of adult 11/29/2024 Telephone [facility] MED & PEDS [address] [place] [address] Zora Coley FNP December recall from Last 3 Months Immunizations Name Administration [...] Mass Index 26.25 01/18/2025 10:42 AM EDT Plan of Treatment Upcoming Encounters Date Type Department Care Team (Late st Contact Info) Description 02/06/2025 3:15 PM EDT Office Visit [facility] CHC MED & PEDS [address] [place] [address] Zora Coley, HEAD OF INTEGRATED MEDIA [address] [place] [address] 02/16/2025 1:30 PM EDT Office Visit [facility] ADULT DENTAL [address] [place] [address] Scott-San, Radha, DDS [address] [place] [address] 07/28/2025 1:00 PM EST Office Visit [facility] ADULT DENTAL [address] [place] [address] Marshal, Natacha [address] [place] [address] Health Maintenance Due Date Last Done Comments Hepatitis B Vaccines (1 of 3 - 19+ 3-dose series) 2017 COVID-19 Vaccine ( season) 2024 10/01/2021, 01/26/2021, 01/05/2021 HPV Vaccines (3 - 3-dose series) 12/28/2024 10/05/2024, 06/24/2024 Family Planning (PISQ) 04/19/2025 04/19/2024 Alcohol/Substance Use Screening 06/24/2025 06/24/2024 Depression Screening 06/24/2025 06/24/2024, 06/24/20 SDOH Screening 06/24/2025 06/24/2024 Dental Oral Exam 07/14/2025 01/11/2025, 03/2023, 07/23/2021 Dental Prophylaxis 07/14/2025 01/11/2025, 1 10/22/2022, 08/09/2021 Tobacco Screening 01/11/2026 01/11/2025 Dental X-Ray: Bitewings 01/12/2026 01/12/20 25, 07/28/2023, 07/23/2021 Pap Smear 04/19/2027 04/19/2024, 03/, 06/18/2021 Dental X-Ray: Full Mouth 01/13/2028 01/11/2025, 1110/2020 DTaP/Tdap/Td Vaccines (2 - Td or Tdap) [...] Procedure Name Priority Date/Time Associated Diagnosis Comments COMPREHENSIVE PERIODONTAL EVALUATION - NEW OR ESTABLISHED PATIENT Routine 01/11/2025 1:00 PM EDT PERIODIC ORAL EVALUATION - ESTABLISHED PATIENT Routine 01/11/2025 1:00 PM EDT CASE PRESENTATION, DETAILED AND EXTENSIVE TREATMENT PLANNING Routine 01/11/2025 1:00 PM EDT Dental plaque Teeth missing Dental calculus Gingival bleeding ORAL HYGIENE INSTRUCTIONS Routine 01/11/2025 1:00 PM EDT Dental plaque Teeth missing Dental calculus Gingival bleeding INTRAORAL - COMPLETE SERIES OF RADIOGRAPHIC IMAGES Routine 01/11/2025 1:00 PM EDT Dental plaque Teeth missing Dental calculus Gingival bleeding PROPHYLAXIS - ADULT Routine 01/11/2025 1 :00 PM EDT Dental plaque Dental calculus Gingival bleeding 12 MOD COMPOSITE FILLING Routine 01/11/2025 12:00 AM EDT MEASLES, MUMPS, AND RUBELLA (MMR) AB (IGG) PANEL, IMMUNE STATUS Routine 12/29/2024 9:23 AM EDT Routine health maintenance COMPREHENSIVE METABOLIC PANEL Routine 12/29/2024 9:23 AM EDT Encounter for routine history and physical examination of adult TSH W/REFLEX TO FT4 Routine 12/29/2024 9 :23 AM EDT Encounter for routine history and physical examination of adult LIPID PANEL, STANDARD Routine 12/29/2024 9:23 AM EDT Encounter for routine history and physical examination of adult HEPATITIS C VIRAL RNA, QUANTITATIVE, REAL-TIME PCR Routine 04/22/2024 3:50 PM EDT Genital sore HIV 1/2 ANTIGEN/ANTIBODY, FOURTH GENERATION W/RFL Routine 04/22/2024 3:50 PM EDT Genital sore THINPREP?? IMAGING PAP REFL HPV MRNA(IF ASCUS,ASC-H,LSIL) Routine 04/19/2024 10:46 AM EDT LGSIL on Pap smear of cervix from Last 3 Months or Most Recently Relevant to Health Maintenance Results * TSH W/Reflex to FT4 (12/29/2024 9:23 AM EDT) TSH reflex Free T4 1.67 0.32 - 4.0 uIU/mL [facility] Blood Venous blood specimen / Unknown 12/29/2024 9:23 AM EDT 12/29/2024 11:34 AM EDT us Zora Coley [facility] LAB BLOOD ORDERABLES Final Res ult [facility] [address] [place] [phone] * Measles, Mumps, and Rubella (MMR) Antibodies??(IgG) Panel, Immune Status (12/29/2024 9:23 AM EDT) Mumps Virus IgG Antibody 213.00 AU/mL [facility] Comment:AU/mL Interpretation ------- <9.00 Not consistent with immunity9.00-10.99 Equivocal>10.99 Consistent with immunityThe presence of mumps IgG antibody suggests immunizationor past or current infection with mumps virus. Rubella IgG Antibody 2.53 Index [facility] Comment:Index Interpretation ----- <0.90 Not consistent with immunity 0.90-0.99 Equivocal > or = 1.00 Consistent with immunityThe presence of rubella IgG antibody suggestsimmunization or past or current infection withrubella virus.THIS TEST WAS PERFORMED AT:[facility] [place] [phone] MOLINA MD Rubeola IgG (Measles) 287.00 AU/mL [facility] Comment:AU/mL Interpretation ----- <13.50 Not consistent with czbhaygl20.50-16.49 Equivocal>16.49 Consistent with immunityThe presence of measles IgG suggests immunization orpast or current infection with measles virus.For additional information, please refer [email or web address](This link is being provided for informational/educational purposes only.) Blood Venous blood specimen / Unknown 12/29/2024 9:23 AM EDT 12/29/2024 11:34 AM EDT Ozra Brijesh [facility] LAB BLOOD ORDERABLES Final Res ult [facility] [address] [place] [phone] * (ABNORMAL) Lipid Panel, Standard (12/29/2024 9:23 AM EDT) Triglycerides 104 <150 mg/dL [facility] Comment:Desirable Triglyceri de: less than 150 mg/dLBorderline High Triglyceride 150-199 mg/dLHigh Triglyceride: 200-499 mg/dLVery High Triglyceride: greater than or equal to 5OO mg/dL Cholesterol 184 <200 mg/dL [facility] Comment:Desirable Cholestero l: less than 200 mg/dLBorderline High Cholesterol: 200-239 mg/dLHigh Cholesterol: greater than 239 mg/dL LDL Cholesterol Calculated 101(H) <100 mg/dL [facility] Comment:Desirable LDL: less than 100 mg/dLNear Optimal/Above Optimal LDL: 110- 129 mg/dLBorderline High LDL: 130-159 mg/dLHigh LDL: 160-189 mg/dLVery High LDL: greater than or equal to 190 mg/dL HDL Cholesterol 63 >40 mg/dL [facility] Comment:Desirable HDL: great er than 40 mg/dL Note: This HDL assay may give artificially low results in patients with liver disease. Blood Venous blood specimen / Unknown 12/29/2024 9:23 AM EDT 12/29/2024 11:34 AM EDT Zora Coley [facility] LAB BLOOD ORDERABLES Final Res ult Performing Organization Address [facility]/ZIP Co de Phone Number [facility] [address] [place] [address] [phone] * (ABNORMAL) Comprehensive Metabolic Panel (12/29/2024 9:23 AM EDT) Sodium 139 135 - 145 mmol/L [facility] Potassium 3.7 3.3 - 5.1 mmol/L [facility] Chloride 108 96 - 108 mmol/L [facility] Carbon Dioxide 24 22 - 29 mmol/L [facility] Anion Gap 11(L) 12 - 20 [facility] Urea Nitrogen (BUN) 11 9 - 16 mg/dL [facility] Creatinine, Serum 0.70 0.5 - 1.4 mg/dL [facility] Estimated Glomerular Filt Rate >60 [facility] Comment:Chronic Kidney Disea se: Estimated GFR < 60 mL/min/1.27l0Uenhgq Kidney Disease: Estimated GFR < 15 mL/min/1.73m2 Glucose 80 60 - 115 mg/dL [facility] Calcium 9.3 8.4 - 10.2 mg/dL [facility] Bilirubin, Total 0.3 0.0 - 1.0 mg/dL [facility] Aspartate Amino Transferase 27 5 - 31 U/L [facility] Alanine Aminotransferase 16 0 - 31 U/L [facility] Total Protein 7.6 6.5 - 8.0 g/dL [facility] Albumin Level 3.9 3.5 - 5.0 g/dL [facility] Alkaline Phosphatase 40 39 - 117 U/L [facility] Blood Venous blood specimen / Unknown 12/29/2024 9:23 AM EDT 12/29/2024 11:34 AM EDT Zora DOYLE LAB BLOOD ORDERABLES Final Res ult Performing Organization Address [facility]/ZIP Co de Phone Number [facility] [address] [place] [address] [phone] * Hepatitis C Viral RNA, Quantitative, Real-Time PCR (04/22/2024 3:50 PM EDT) Pathologist [facility] Hepatitis C Viral Load <15 NOT DETECTED NOT DETECTED IU/mL [facility] HCV Log PCR <1.18 NOT DETECTED NOT DETECTED Log IU/mL [facility] Comment:For additional infor aliya, please refer [email or web address]/faq/[email or web address](This link is being provided for informational/educational purposes only.)THIS TEST WAS PERFORMED AT:[facility] [place] [phone] MOLINA MD Blood 04/22/2024 3:50 PM EDT 04/22/2024 6:06 PM EDT Zora Coley [facility] LAB BLOOD ORDERABLES Final Res ult [facility] [address] [place] [phone] * HIV-1/2 Antigen and Antibodies, Fourth Generation, with Reflexes (04/22/2024 3:50 PM EDT) Pathologist [facility] HIV AB/AG Nonreactive Nonreactive [facility] Comment:HIV-1 p24 Ag and/or HIV-1/HIV-2 Ab not detected.A test result that is nonreactive does not exclude thepossibility of exposure to or infection with HIV-1 and/orHIV-2. Nonreactive results in this assay for individualswith prior exposure to HIV-1 and/or HIV-2 may be due toantigen and antibody levels that are below the limit ofdetection of this assay.The [employer] HIV Ag/Ab Combo assay result andsupplemental assay results should be interpreted inconjunction with the patient's clinical presentation,history and other laboratory results. If the results areinconsistent with clinical evidence, additional testing issuggested to confirm the result. Blood Venous blood specimen / Unknown 04/22/2024 3:50 PM EDT 04/22/2024 6:04 PM EDT us oZra Coley [facility] LAB BLOOD ORDERABLES Final Res ult [facility] [address] [place] [address] [phone] * Pap with reflex HPV (04/19/2024 10:46 AM EDT) HPV nRNA E6/E7 [facility] HPV 16,18/45 [facility] SOURCE: SEE NOTE [facility] Comment:None given Report Status: [facility] Clinical Information: SEE NOTE [facility] Comment:None given LMP: SEE NOTE [facility] Comment:NONE GIVEN Prev. PAP: SEE NOTE [facility] Comment:NONE GIVEN Prev. BX: SEE NOTE [facility] Comment:NONE GIVEN Statement Of Adequacy: SEE NOTE [facility] Comment:Satisfactory for omid luation.Endocervical/transformation zone componentpresent. General Categorization: [facility] Interpretation/Result: SEE NOTE [facility] Comment:Cytology Results: Ne gative for intraepitheliallesion or malignancy. Cytology Comment SEE NOTE [facility] Comment:This Pap test has be en evaluated with computerassisted technology. Woodworking Craftsman: SEE NOTE [facility] Comment:MSM, CT(ASCP)CT scre ening location: [address] [address] Review Woodworking Craftsman: SEE NOTE [facility] Comment:DCR, CT(ASCP)CT scre ening location: [address] [address] Pathologist [facility] PAP Infection SEE NOTE [facility] Comment:Fungal organisms mor phologically consistent withCandida spp. See Note SEE [facility] Comment:EXPLANATORY NOTE:The Pap is a screening test for cervical cancer. It isnot a diagnostic test and is subject to false negativeand false positive results. It is most reliable when asatisfactory sample, regularly obtained, is submittedwith relevant clinical findings and history, and whenthe Pap result is evaluated along with historic andcurrent clinical information.THIS TEST WAS PERFORMED AT:[facility] [place] [phone] MOLINA MD Pap Vial Cervix uteri structure / Unknown 04/19/2024 10:46 AM EDT 04/19/2024 2:27 PM EDT Narrative [facility] - 04/22/2024 10:19 AM EDT SEE SCANNED RESULTS IN EMR us Gretta Jean Paul [facility] CYTOLOGY ORDERABLES F inal Result [facility] [address] [place] [address] [phone] from Last 3 Months or Most Recently Relevant to Health Maintenance Insurance [facility] FULL DENTAL[place] ADULT DENTAL - [facility] FULL (MEDICAID) Care Teams Photoflash Powder Mixer Relationship Specialty Start Date End Date Zora Coley FNP [address] [place] [address] PCP - General Family Medicine 05/18/22
--- OUTSIDE RECORDS SUMMARY | 2025-01-18 13:16 | XMS_ITS | Encounter Summary ---
Author Organization [employer] Address [address] [facility] 7t [place] [address] Care Team Providers Care Clinical Psychology Professor Name Role Phone Zora Coley WIND DEVELOPMENT DIRECTOR Primary Care Provider [phone] Encounter Details Date Type Department Care Team (Latest Contact Info) Description 01/18/2025 Travel Social History Tobacco Use Types Packs/Day Years [...] Description 02/06/2025 3:15 PM EDT Office Visit [facility] CHC MED & PEDS [address] [place] [address] Zora Coley FNP [address] [place] [address] 02/16/2025 1:30 PM EDT Office Visit [facility] ADULT DENTAL [address] [place] [address] Scott-San, Radha, DDS [address] [place] [address] 07/28/2025 1:00 PM EST Office Visit [facility] ADULT DENTAL [address] [place] [address] Marshal, Natacha [address] [place] [address] documented as of this encounter Visit Diagnoses Not on filedocumented in this encounter Additional Health Concerns Assessment Noted Time PHQ-9 Depression Total Score: 6 06/24/20 24 9:59 AM EDT documented as of this encounter Care Teams Clinical Psychology Professor Relationship Specialty Start Date End Date Zora Coley FNP [address] [place] [address] PCP - General Family Medicine 05/18/22 documented as of this encounter
--- OUTSIDE RECORDS SUMMARY | 2025-01-18 13:16 | XMS_ITS | Encounter Summary ---
Author Organization [employer] Address [address] [facility] 7t h Floor [address] Care Team Providers Care Nutrition Club Ambassador Name Role Phone Zora Coley Primary Care Provider [phone] Reason for Visit * Reason Onset Date Comments ER Follow-up 01/18/2025 Transition Of Care (Tcm) 01/18/2025 Encounter Details Date Type Department Care Team (Late st Contact Info) Description 01/18/2025 Telephone [facility] MEDICINE [address] [place] [address] Zora Coley FNP [address] [place] [address] ER Follow-up; Transition Of Care (Tcm) Social History Tobacco Use Types Packs/Day Years [...] encounter Miscellaneous Notes * Telephone Encounter - Lashawn Roman RN - 01/18/2025 8:27 AM EDT Hospital Discharges and Admission for [facility] Type of Visit: Emergency Department Date of Admission/Visit: 01/17/25 Date of Discharge: 01/17/25 Facility: [facility] Diagnosis: FEBRILE ILLNESS, SORE THROAT Disposition: Discharged Home Follow-Up Actions Follow-Up Needed: Provider appointment Follow-Up Outcome: Spoke to Patient Initial Contact Date: 01/18/25 Patient Contacted: Yes Patient Status: Worsening No hadoop java developer needed as this justowriter operator speaks Bermudian. Call returned to [facility] to [facility]. Reports seen at [facility]. All viral testing negative and strep testing negative. Pt continued with fever last night. Endorses worsening ST and ROMERO. No congestion, ear pain or cough. Pt wishes to be seen in office. Agrees to appt today for exam The full discharge summary is Is available under encounters/interface Review Flowsheet [facility] Transition of Care Documentation Type of Visit Date of Admission/Visit Date of Discharge Facility Diagnosis Disposition 01/18/2025 8:00 AM Emergency Department 01/17/2025 01/17/2025 [facility] FEBRILE ILLNESS, SORE THROAT Discharged Home Recent Visits Date Type Provider Dept 06/24/24 Office Visit [facility] Med & Peds 05/06/24 Office Visit [facility] Med & Peds Showing recent visits within past 365 days with a meds authorizing provider and meeting all other requirements Future Appointments Date Type Provider Dept 02/06/25 Appointment [facility] Med & Peds Showing future appointments within next 150 days with a meds authorizing provider and meeting all other requirements Patient was educated on hours of operation. * Telephone Encounter - Luis Fernando Benitez - 01/18/2025 8:03 AM EDT Patient calling to report ED visit on : Date: 01/16/25 Hospital: [facility] Seen for: Fever and Sore Throat Symptomatic Yes *if yes message should go to Triage Patient advised will forward to team nurse for follow up Contact pt at [phone] documented in this encounter Plan of Treatment Upcoming Encounters Date Type Department Care Team (Late st Contact Info) Description 02/06/2025 3:15 PM EDT Office Visit [facility] MED & PEDS [address] [place] [address] Zora Coley FNP [address] [place] [address] 02/16/2025 1:30 PM EDT Office Visit [facility] ADULT DENTAL [address] [place] [address] Scott-San, Radha, DDS [address] [place] [address] 07/28/2025 1:00 PM EST Office Visit [facility] ADULT DENTAL [address] [place] [address] Marshal, Natacha [address] [place] [address] documented as of this encounter Visit Diagnoses Not on filedocumented in this encounter Additional Health Concerns Assessment Noted Time PHQ-9 Depression Total Score: 6 06/24/20 24 9:59 AM EDT documented as of this encounter Care Teams Nutrition Club Ambassador Relationship Specialty Start Date End Date Zora Coley FNP [address] [place] [address] PCP - General Family Medicine 05/18/22 documented as of this encounter
[2025-01-18 15:09] LABS: Monotest Negative (Negative)
[2025-01-19 08:05] LABS: HIV AB/AG Nonreactive (Nonreactive); HIV Num 1 0.08 S/CO (0.00-0.99)
== END 2025-01-18 11:41 | disposition home or self-care (01) ==
LOC: HO.CHCLDS 11:40
PROVIDERS: Visit Provider Internal Medicine
DX: J02.9 Acute pharyngitis, unspecified (principal)
CPT/HCPCS: 36415; 86308; 87389

== ENCOUNTER 2025-01-19 11:23 | Outpatient (REF) | payer MEDICAID, OTHER, SELFPAY ==
--- OUTSIDE RECORDS SUMMARY | 2025-01-19 13:27 | XMS_ITS | Encounter Summary ---
Author Organization [employer] Address [address] [facility] [address] 7t [place] [address] Care Team Providers Care Diaper Folder Name Role Phone Zora Coley Primary Care Provider [phone] Reason for Visit * Reason Onset Date Comments Lab Orders 07/20/2023 Encounter Details Date Type Department Care Team ([facility] st Contact Info) Description 07/20/2023 Telephone [facility] MEDICINE [address] [place] [address] Zora Coley FNP [address] [place], [place] [phone] Lab Orders Social History Tobacco Use Types [...] Miscellaneous Notes * Telephone Encounter - Adan Perez - 07/20/2023 2:13 PM EDT Tc from Lynn at the chemical lab from [facility] calling to report that she was unable to perform a SureSwab BV test due to specimen transport device did not contain swab. Gym Teacher attempted to contact office and no reply. If any questions please call Lynn at [phone] documented in this encounter Plan of Treatment Upcoming Encounters Date Type Department Care Team (Late st Contact Info) Description 02/06/2025 3:15 PM EDT Office Visit [facility] MED & PEDS [address] [place] [address] Zora Coley, TOW PICKER [address] [place] [address] 02/16/2025 1:30 PM EDT Office Visit [facility] ADULT DENTAL [address] [place] [address] Radha Montenegro, DDS [address] [place] [address] 04/18/2025 9:00 AM EDT Procedure Visit [facility] MEDICINE [address] [place] [address] Gretta Reaves CNM [address] [place] [address] 07/28/2025 1:00 PM EST Office Visit [facility] ADULT DENTAL [address] [place] [address] Natacha Araya [address] [place] [address] documented as of this encounter Visit Diagnoses Not on filedocumented in this encounter Additional Health Concerns Assessment Noted Time PHQ-9 Depression Total Score: 0 10/09/19 23 11:23 AM EST documented as of this encounter Care Teams Diaper Folder Relationship Specialty Start Date End Date Zora Coley FNP [address] [place] [address] PCP - General Family Medicine 05/18/22 documented as of this encounter
--- OUTSIDE RECORDS SUMMARY | 2025-01-19 13:28 | XMS_ITS | Encounter Summary ---
Author Organization [employer] Address [address] [facility] [address] 7t [place] [address] Care Team Providers Care Diesel Roller Operator Name Role Phone Zora Coley Primary Care Provider [phone] Encounter Details Date Type Department Care Team (Late st Contact Info) Description 07/22/2023 Orders Only [facility] MEDICINE [address] [place] [address] Zora Coley FNP [address] [place], [place] [phone] Social History Tobacco Use Types Packs/Day Years [...] Description 02/06/2025 3:15 PM EDT Office Visit [facility] CHC MED & PEDS 505 [place] [address] Zora Coley FNP [address] [place] [address] 02/16/2025 1:30 PM EDT Office Visit [facility] ADULT DENTAL [address] [place] [address] Radha Montenegro, DDS [address] [place] [address] 04/18/2025 9:00 AM EDT Procedure Visit [facility] MEDICINE [address] [place] [address] Gretta Reaves, CNM [address] [place] [address] 07/28/2025 1:00 PM EST Office Visit [facility] ADULT DENTAL [address] [place] [address] Harinder Arayaaris [address] [place] [address] documented as of this encounter Visit Diagnoses Not on filedocumented in this encounter Additional Health Concerns Assessment Noted Time PHQ-9 Depression Total Score: 0 10/09/19 23 11:23 AM EST documented as of this encounter Care Teams Diesel Roller Operator Relationship Specialty Start Date End Date Zora Coley FNP [address] [place] [address] PCP - General Family Medicine 05/18/22 documented as of this encounter
--- OUTSIDE RECORDS SUMMARY | 2025-01-19 13:29 | XMS_ITS | Encounter Summary ---
Author Organization [employer] Address [address] [facility] 7t [place] [address] Care Team Providers Care Lead Software Developer Name Role Phone Zora Coley EARTH SCIENCES PROFESSOR Primary Care Provider [phone] Encounter Details Date Type Department Care Team (Latest Contact Info) Description 01/19/2025 Travel Social History Tobacco Use Types Packs/Day [...] 3:15 PM EDT Office Visit [facility] CHC MED & PEDS [address] [place] [address] Zora Coley FNP 505 [place] [address] 02/16/2025 1:30 PM EDT Office Visit [facility] ADULT DENTAL [address] [place] [address] Radha Montenegro, DDS [address] [place] [address] 04/18/2025 9:00 AM EDT Procedure Visit [facility] MEDICINE [address] [place] [address] Gretta Reaves CNM [address] [place] [address] 07/28/2025 1:00 PM EST Office Visit [facility] ADULT DENTAL [address] [place] [address] Natacha Araya 230 [place] [address] documented as of this encounter Visit Diagnoses Not on filedocumented in this encounter Additional Health Concerns Assessment Noted Time PHQ-9 Depression Total Score: 6 06/24/20 24 9:59 AM EDT documented as of this encounter Care Teams Lead Software Developer Relationship Specialty Start Date End Date Zora Coley FNP [address] [place] [address] PCP - General Family Medicine 05/18/22 documented as of this encounter
--- OUTSIDE RECORDS SUMMARY | 2025-01-19 13:29 | XMS_ITS | Encounter Summary ---
Author Organization [employer] [facility] Address [address] [place] [address] 7 [place] [address] Care Team Providers Care Real Estate Appraiser Supervisor Name Role Phone Zora Coley Primary Care Provider [phone] Encounter Details Date Type Department Care Team (Latest Contact Info) Description 08/09/2021 Abstract [facility] CONVERSIONS Dental, Provider, DDS Social History Tobacco [...] Description 02/06/2025 3:15 PM EDT Office Visit [facility] CHC MED & PEDS [address] [place] [address] Zora Coley FNP 505 [place] [address] 02/16/2025 1:30 PM EDT Office Visit [facility] ADULT DENTAL [address] [place] [address] Scott-Radha San, DDS [address] [place] [address] 04/18/2025 9:00 AM EDT Procedure Visit [facility] MEDICINE [address] [place] [address] Gretta Reaves CNM [address] [place] [address] 07/28/2025 1:00 PM EST Office Visit [facility] ADULT DENTAL [address] [place], [place] [phone] Natacha Araya [address] [place] [address] documented as of this encounter Visit Diagnoses Not on filedocumented in this encounter Care Teams Real Estate Appraiser Supervisor Relationship Specialty Start Date End Date Zora Coley FNP [address] [place] [address] PCP - General Family Medicine 05/18/22 documented as of this encounter
--- OUTSIDE RECORDS SUMMARY | 2025-01-19 13:29 | XMS_ITS | Encounter Summary ---
Author Organization [employer] Address 75 [facility] 7t [place] [address] Care Team Providers Care Quality Tech Name Role Phone Zora Coley Primary Care Provider [phone] Reason for Visit * Reason Onset Date Comments Appointment Request 02/12/2024 Encounter Details Date Type Department Care Team ([facility] st Contact Info) Description 02/12/2024 Telephone [facility] MEDICINE [address] [place] [address] Zora Coley FNP [address] [place], [place] [phone] Appointment Request Social History Tobacco Use Types [...] PM EDT Tc from pt requesting status environmental technology professor. * Telephone Encounter - Adan James - 02/18/2024 2:19 PM EDT Tc from patient calling in regards to the message below * Telephone Encounter - Nora Rausch - 02/12/2024 10:51 AM EDT Tc from pt requesting appt with PCP per last visit notes, typewriter ribbon winder not sure if should schedule a PE or a PAP documented in this encounter Plan of Treatment Upcoming Encounters Date Type Department Care Team (Late st Contact Info) Description 02/06/2025 3:15 PM EDT Office Visit [facility] CHC MED & PEDS [address] [place] [address] Zora Coley FNP 505 [place] [address] 02/16/2025 1:30 PM EDT Office Visit [facility] ADULT DENTAL [address] [place] [address] Radha Montenegro DDS [address] [place] [address] 04/18/2025 9:00 AM EDT Procedure Visit [facility] MEDICINE [address] [place] [address] Gretta Reaves, SUSSY [address] [place] [address] 07/28/2025 1:00 PM EST Office Visit [facility] ADULT DENTAL [address] [place], [place] [phone] Harinder Arayaaris [address] [place] [address] documented as of this encounter Visit Diagnoses Not on filedocumented in this encounter Additional Health Concerns Assessment Noted Time PHQ-9 Depression Total Score: 10 024 8:57 PM EDT documented as of this encounter Care Teams Quality Tech Relationship Specialty Start Date End Date Zora Coley FNP [address] [place] [address] PCP - General Family Medicine 05/18/22 documented as of this encounter
--- OUTSIDE RECORDS SUMMARY | 2025-01-19 13:30 | XMS_ITS | Encounter Summary ---
Author Organization [email or web address] Address 75 [facility] 7t [place] [address] Care Team Providers Care Boatwright Name Role Phone Zora Coley Primary Care Provider [phone] Reason for Visit * Reason Onset Date Comments ER Follow-up 01/18/2025 Transition Of Care (Tcm) 01/18/2025 Encounter Details Date Type Department Care Team (Late st Contact Info) Description 01/18/2025 Telephone [facility] MEDICINE [address] [place] [address] Zora Coley FNP [address] [place] [address] ER Follow-up; Transition Of Care (Tcm) Social [...] AM EDT Hospital Discharges and Admission for [facility] Type of Visit: Emergency Department Date of Admission/Visit: 01/17/25 Date of Discharge: 01/17/25 Facility: [facility] Diagnosis: FEBRILE ILLNESS, SORE THROAT Disposition: Discharged Home Follow-Up Actions Follow-Up Needed: Provider appointment Follow-Up Outcome: Spoke to Patient Initial Contact Date: 01/18/25 Patient Contacted: Yes Patient Status: Worsening No tree doctor needed as this medical technical writer speaks Khmer. Call returned to [facility] to [facility]. Reports seen at [facility]. All viral testing negative and strep testing negative. Pt continued with fever last night. Endorses worsening ST and ROMERO. No congestion, ear pain or cough. Pt wishes to be seen in office. Agrees to appt today for exam The full discharge summary is Is available under encounters/interface Review Flowsheet [facility] Transition of Care Documentation Type of Visit Date of Admission/Visit Date of Discharge Facility Diagnosis Disposition 01/18/2025 8:00 AM Emergency Department 01/17/2025 01/17/2025 [facility] FEBRILE ILLNESS, SORE THROAT Discharged Home Recent Visits Date Type Provider Dept 06/24/24 Office Visit [facility] Chc Med & Peds 05/06/24 Office Visit [facility] Ch[facility] Med & Peds Showing recent visits within past 365 days with a meds authorizing provider and meeting all other requirements Future Appointments Date Type Provider Dept 02/06/25 Appointment [facility] Chc Med & Peds Showing future appointments within [...] nurse for follow up Contact pt at [phone] documented in this encounter Plan of Treatment Upcoming Encounters Date Type Department Care Team (Late st Contact Info) Description 02/06/2025 3:15 PM EDT Office Visit [facility] MED & PEDS [address] [place] [address] Zora Coley FNP [address] [place] [address] 02/16/2025 1:30 PM EDT Office Visit [facility] ADULT DENTAL [address] [place] [address] Radha Montenegro DDS [address] [place] [address] 04/18/2025 9:00 AM EDT Procedure Visit [facility] MEDICINE [address] [place] [address] Gretta Reaves CNM [address] [place] [address] 07/28/2025 1:00 PM EST Office Visit [facility] ADULT DENTAL [address] [place] [address] MarshalNatacha [address] [place] [address] documented as of this encounter Visit Diagnoses Not on filedocumented in this encounter Additional Health Concerns Assessment Noted Time PHQ-9 Depression Total Score: 6 06/24/20 24 9:59 AM EDT documented as of this encounter Care Teams Boatwright Relationship Specialty Start Date End Date Zora Coley FNP [address] [place] [address] PCP - General Family Medicine 05/18/22 documented as of this encounter
--- OUTSIDE RECORDS SUMMARY | 2025-01-19 13:30 | XMS_ITS | Encounter Summary ---
Author Organization [employer] Address 75 [facility] 7t [place] [address] Care Team Providers Care Ticket Clerk Name Role Phone Zora Coley VIVEK Primary Care Provider [phone] Encounter Details Date Type Department Care Team ([facility] st Contact Info) Description 01/18/2025 10:20 AM EDT Office Visit [facility] CHC MED & PEDS [address] [place], [place] [phone] Tanya Funes MD [address] [place], [place] [phone] Pharyngitis, unspecified etiology (Primary Dx) Social History [...] 10:42 AM EDT documented in this encounter Progress Notes * Tanya Funes MD - 01/18/2025 10:20 AM EDT BASIL Huizar is a 24 y.o. female patient of [facility]K Rey who presents for sore throat. KURTIS Harper was well until 2 days ago when she developed a sore throat, nasal congestion, headache, subjective fever and chills. She was having a lot of pain in her throat so she went to [facility] about 36 hours ago. While there, she had POC viral and strep testing and they were all negative.She was also afebrile. She was discharged with recommendations to take OTC analgesics. She came in today to the clinic, though, because her throat is hurting worse and it feels like it is closing on her. Still had fever and chills last night. Denies SOB, nausea, vomiting, abdominal pain. She has not had oral sex. No history of STIs. Has one stable sexual partner. Patient Active Problem List Diagnosis Abnormal cervical Papanicolaou smear Recurrent headache Routine health maintenance Chronic pain of both knees Dental plaque Teeth missing Dental calculus Gingival bleeding No Known Allergies Current Outpatient Medications on File Prior to Visit Medication Sig Dispense Refill amitriptyline (Elavil) 10 MG tablet Take 10 mg by mouth at bedtime. (Patient not taking: Reported on 01/11/2025) norelgestromin-ethinyl estradiol (Xulane) 150-35 MCG/24HR APPLY 1 PATCH TO CLEAN DRY SKIN ONCE A WEEK ON THE SAME DAY FOR 3 WEEKS. REMOVE FOR 1 WEEK, THEN RESTART CYCLE. 9 patch 3 No current facility-administered medications on file prior to visit. Review of Systems Constitutional: Positive for chills and fever. HENT: Positive for congestion, ear pain, sore throat and trouble swallowing. Negative for sinus pressure, sinus pain and voice change. Eyes: Positive for itching. Negative for photophobia. Respiratory: Negative for cough, choking, shortness of breath, wheezing and stridor. Gastrointestinal: Negative for abdominal pain. Skin: Negative for rash. Neurological: Positive for headaches. OBJECTIVE Vitals: 01/18/25 1042 BP: 110/73 BP Location: Right arm Patient Position: Sitting BP Cuff Size: Adult Pulse: 78 Resp: 20 Temp: 97.1 ??F (36.2 ??C) TempSrc: Oral SpO2: 98% Weight: 148 lb 3.2 oz (67.2 kg) Height: 5' 3 (1.6 m) Physical Exam Constitutional: Appearance: She is not toxic-appearing. HENT: Head: Normocephalic and atraumatic. Right Ear: Tympanic membrane, ear canal and external ear normal. There is no impacted cerumen. Left Ear: Ear canal and external ear normal. There is no impacted cerumen. Tympanic membrane is bulging. Nose: Congestion present. Right Turbinates: Swollen. Left Turbinates: Swollen. Right Sinus: No maxillary sinus tenderness or frontal sinus tenderness. Left Sinus: No maxillary sinus tenderness or frontal sinus tenderness. Comments: Bilateral allergic shiners Mouth/Throat: Mouth: Mucous membranes are moist. No oral lesions. Palate: No mass and lesions. Pharynx: Posterior oropharyngeal erythema present. Tonsils: Tonsillar exudate present. No tonsillar abscesses. 3+ on the right. 3+ on the left. Neurological: Mental Status: She is alert. Assessment/Plan Assessment/Plan Diagnoses and all orders for this visit: Pharyngitis, unspecified etiology - Mononucleosis Test, Qualitative; Future - HIV-1/2 Antigen and Antibodies, Fourth Generation, with Reflexes; Future - Pertussis Bordetella/ parapertussis PCR: She will return to the clinic tomorrow 01/19/25 in the morning to have this test done. Other orders - ibuprofen 400 MG tablet; Take 1 tablet (400 mg) by mouth every 6 (six) hours if needed for moderate pain or fever for up to 30 doses. Future Appointments Date Time Provider Department Center 02/06/2025 3:15 PM [facility] Rey [facility] MED [facility] 02/16/2025 1:30 PM Radha Montenegro DDS [facility] 07/28/2025 1:00 PM Natacha Araya [facility] documented in this encounter Plan of Treatment Upcoming Encounters Date Type Department Care Team (Late st Contact Info) Description 02/06/2025 3:15 PM EDT Office Visit [facility] MED & PEDS [address] [place] [address] Zora Coley FNP [address] [place] [address] 02/16/2025 1:30 PM EDT Office Visit [facility] ADULT DENTAL [address] [place] [address] Radha Montenegro DDS [address] [place] [address] 04/18/2025 9:00 AM EDT Procedure Visit [facility] MEDICINE [address] [place], [place] [phone] VelmaGretta romeo, CNM [address] [place] [address] 07/28/2025 1:00 PM EST Office Visit [facility] ADULT DENTAL [address] [place] [address] Natacha Araya [address] [place] [address] Scheduled Orders Name Type Priority Associated Diagnoses Orde r Schedule Pertussis Bordetella/ parapertussis PCR Lab Routine Pharyngitis, unspecified etiology Ordered: 01/18/2025 documented as of this encounter Procedures Procedure Name Priority Date/Time Associated Diagnosis Comments MONONUCLEOSIS TEST, QUALITATIVE Routine 01/18/2025 11:43 AM EDT Pharyngitis, unspecified etiology HIV 1/2 ANTIGEN/ANTIBODY, FOURTH GENERATION W/RFL Routine 01/18/2025 11:43 AM EDT Pharyngitis, unspecified etiology documented in this encounter Results * HIV-1/2 Antigen and Antibodies, Fourth Generation, with Reflexes (01/18/2025 11:43 AM EDT) [facility] HIV AB/AG Nonreactive Nonreactive [facility] Comment:HIV-1 p24 Ag and/or HIV-1/HIV-2 Ab not detected.A test result that is nonreactive does not exclude thepossibility of exposure to or infection with HIV-1 and/orHIV-2. Nonreactive results in this assay for individualswith prior exposure to HIV-1 and/or HIV-2 may be due toantigen and antibody levels that are below the limit ofdetection of this assay.The [employer] HIV Ag/Ab Combo assay result andsupplemental assay results should be interpreted inconjunction with the patient's clinical presentation,history and other laboratory results. If the results areinconsistent with clinical evidence, additional testing issuggested to confirm the result. Blood Venous blood specimen / Unknown 01/18/2025 11:43 AM EDT 01/18/2025 2:15 PM EDT us Tanya Funes MD LAB BLOOD ORDERABLES Final Re sult Performing Organization Address City/[facility]/ZIP Co de Phone Number [facility] [address] [place] [address] [phone] * Mononucleosis Test, Qualitative (01/18/2025 11:43 AM EDT) Monotest Negative Negative [facility] Blood Venous blood specimen / Unknown 01/18/2025 11:43 AM EDT 01/18/2025 2:15 PM EDT us Tanya Funes MD LAB BLOOD ORDERABLES Final Re sult Performing Organization Address [facility] Co de Phone Number [facility] [address] [place] [address] [phone] documented in this encounter Visit Diagnoses Diagnosis Pharyngitis, unspecified etiology- Primary documented in this encounter Additional Health Concerns Assessment Noted Time PHQ-9 Depression Total Score: 6 06/24/20 24 9:59 AM EDT documented as of this encounter Care Teams Ticket Clerk Relationship Specialty Start Date End Date Zora Coley FNP [address] [place] [address] PCP - General Family Medicine 05/18/22 documented as of this encounter
--- OUTSIDE RECORDS SUMMARY | 2025-01-19 13:30 | XMS_ITS | Encounter Summary ---
Author Organization [employer] Address 75 [facility] 7t [place] [address] Care Team Providers Care Southeast Regional Sales Manager Name Role Phone Zora Coley CHEF MANAGER Primary Care Provider [phone] Encounter Details Date Type Department Care Team [...] Description 02/06/2025 3:15 PM EDT Office Visit [facility] CHC MED & PEDS [address] [place] [address] Zora Coley FNP [address] [place] [address] 02/16/2025 1:30 PM EDT Office Visit [facility] ADULT DENTAL [address] [place] [address] Radha Montenegro, DDS [address] [place] [address] 04/18/2025 9:00 AM EDT Procedure Visit [facility] MEDICINE [address] [place] [address] Gretta Reaves CNM [address] [place] [address] 07/28/2025 1:00 PM EST Office Visit [facility] ADULT DENTAL [address] [place] [address] Natacha Araya [address] [place] [address] documented as of this encounter Visit Diagnoses Not on filedocumented in this encounter Additional Health Concerns Assessment Noted Time PHQ-9 Depression Total Score: 6 06/24/20 24 9:59 AM EDT documented as of this encounter Care Teams Southeast Regional Sales Manager Relationship Specialty Start Date End Date Zora Coley FNP [address] [place] [address] PCP - General Family Medicine 05/18/22 documented as of this encounter
[2025-01-23 13:09] LABS: Bordetella DNA source Swab; Bordetella parapertussis DNA Not Detected (Not Detected); Bordetella pertussis DNA Not Detected (Not Detected)
== END 2025-01-19 11:24 | disposition home or self-care (01) ==
LOC: HO.CHCLNP 11:23
PROVIDERS: Visit Provider Internal Medicine
DX: J02.9 Acute pharyngitis, unspecified (principal)
CPT/HCPCS: 87798

== ENCOUNTER 2025-04-18 16:41 | Outpatient (REF) | payer MEDICAID, OTHER, SELFPAY ==
--- OUTSIDE RECORDS SUMMARY | 2025-04-18 16:49 | XMS_ITS | Clinical Summary ---
Author Organization [employer] Address [address] [facility] 7[address] [place] [address] Care Team Providers Care Machine Tracer Name Role Phone Zora Coley TELEPRINTER Primary Care Provider [phone] Allergies No known active allergies Medications amitriptyline [...] of both knees 06/26/2024 Assessment & Plan (02/08/2025 8:26 AM EDT): - Improved at this time. X-ray orders still active if pain returns or worsens. Assessment & Plan (06/26/2024 11:03 AM EDT): [...] Repeat: March 2025 Last PE: 06/24/24 Dental: [facility] Dental Contraception: control patches (previously using Nexplanon) Eye Care: referral to [facility] Eye Care for routine screening 06/24/24. List of local Vision Centers also provided Assessment & Plan (06/26/2024 11:07 AM EDT): Plan to get HPV and Flu vaccine at [facility] pharmacy today after visit Recurrent headache 10/09/2022 Overview (06/26/2024): -Amitriptyline 10mg nightly Assessment & Plan (02/08/2025 8:25 AM EDT): -Pt reports that she is using very sporadically, but that is helping to control her symptoms -Cont lifestyle interventions as well Assessment & Plan (06/26/2024 10:57 AM EDT): [...] may have this removed and replaced at [facility] if she chooses Impacted cerumen of [...] Encounters Date Type Department Care Team Description 04/18/2025 9:00 AM EDT Procedure Visit [facility] MEDIC[facility] [address] [place] [phone] Gretta Reaves CNM LGSIL on Pap smear of cervix (Primary Dx); Encounter for contraceptive management, unspecified type 04/18/2025 Orders Only [address] [address] Gretta Reaves CNM LGSIL on Pap smear of cervix (Primary Dx) 04/18/2025 Travel 04/17/2025 Telephone [facility] [address] [place] [phone] Zora Coley FNP CHART PREP 03/23/[address] [address] Zora Coley FNP Med Refill 02/16/2025 1:30 PM EDT Office Visit [facility] ADULT DENTAL [address] [place] [address] Scott-San , Radha, DDS Secondary dental caries (Primary Dx); Recurrent dental caries extending into dentin 02/06/2025 3:15 PM EDT Office Visit [facility] [address] [place] [address] Zora Coley FNP Chronic pain of both knees (Primary Dx); Recurrent headache; Routine health maintenance 02/06/2025 Travel 02/06/2025 Telephone [facility] [address] [place] [address] Zora Coley FNP Chart Prep 01/27/2025 Telephone [facility] [address] [place] [address] Tanya Funes MD Results (Tanya Funes MD [facility] Nurses/Please call patient that her nasal swab test for pertussis was negative, so no antibiotics are needed./) 01/23/2025 Telephone [facility] [address] [place] [address] Tanya Funes MD Results 01/19/2025 9:30 AM EDT Clinical Support [facility] [address] [place] [address] Peg Van, RN Encounter for pertussis screening [Z11.2] 01/19/2025 Travel 01/18/2025 10:20 AM EDT Office Visit [facility] [address] [place] [address] Tanya Funes MD Pharyngitis, unspecified etiology (Primary Dx) 01/18/2025 Travel 01/18/[address] [facility] [address] [place] [address] Zora Coley FNP ER Follow-up; Transition Of Care (Tcm) from Last 3 Months Immunizations Immunization Administration Dates Next Due HPV 9-Valent 02/06/2025,10/05/2024,06/24/2024 Influenza injectable quadriv alent preservative free 07/17/2023,10/09/2022,07/03/2021 [...] Access Q2 Not on file 06/24/2024 Comments No Intention Date Recorded No desire to become (finding) 0 04/18/2025 Sex and Gender Information Value Date Recorded Sex Assigned at Female 07/21/2022 10:39 AM EDT Legal Sex Female 10:39 AM EDT Gender Identity Female 11/08/2022 1:20 PM EST Sexual Orientation Choose not to disclose 2021 10:39 AM EDT Last Filed Vital Signs Vital Sign Reading Time Taken Comments Blood Pressure 130/88 04/18/2025 9:22 AM EDT Pulse 92 04/18/2025 9:22 AM EDT Temperature 37.1 C (98.7 F) 04/18/2025 9:22 AM EDT Respiratory Rate 14 04/18/2025 9:22 AM EDT Oxygen Saturation 99% 04/18/2025 9:22 AM EDT Inhaled Oxygen Concentration - - Weight 66.1 kg (145 lb 12.8 oz) 04/18/2025 9:22 AM EDT Height 158.8 cm (5' 2.5 ) 02/06/2025 3:23 PM EDT Body Mass Index 26.24 02/06/2025 3:23 PM EDT Plan of Treatment Upcoming Encounters Date Type Department Care Team (Late st Contact Info) Description 06/05/2025 3:30 PM EDT Clinical Support [facility] [address] [place] [address] 07/28/2025 1:00 PM EST Office Visit [facility] ADULT DENTAL [address] [place] [address] Natacha Araya [address] [place] [address] Health Maintenance Due Date Last Done Comments Disability Screening 1998 Hepatitis B Vaccines (1 of 3 - 19+ 3-dose series) 2017 COVID-19 Vaccine ( season) 2024 10/01/2021, 01/26/2021, 01/05/2021 Pap Smear 04/19/2025 04/19/2024, 03/2 , 06/18/2021 Influenza Vaccine (#1) 2025 , 07/17/2023, 10/09/2022, Additional history exists Alcohol/Substance Use Screening 06/24/2025 06/24/2024 Depression Screening 06/24/2025 06/24/2024, 06/24/20 SDOH Screening 06/24/2025 06/24/2024 Dental Oral Exam 07/14/2025 01/11/2025, 03/2023, 07/23/2021 Dental Prophylaxis 07/14/2025 01/11/2025, 1 10/22/2022, 08/09/2021 Dental X-Ray: Bitewings 01/12/2026 01/12/20 25, 07/28/2023, 07/23/2021 Family Planning (PISQ) 04/18/2026 04/18/2025 Tobacco Screening 04/18/2026 04/18/2025 Dental X-Ray: Full Mouth 01/13/2028 01/11/2025, 10/2020 DTaP/Tdap/Td Vaccines (2 - Td or Tdap) 07/17/2033 07/17/2023 Zoster Vaccines (1 of 2) 2048 RSV Patients and Patients Aged 60 years or older (1 - 1-dose 75+ series) 2073 Hepatitis C Screening Completed 04/22/2024 , 11/11/2022, 06/18/2021 HIV Screening Completed 01/18/2025, 10/2023, 11/11/2022, Additional history exists HPV Vaccines Completed 02/06/2025, 09/21, 06/24/2024 HIB Vaccines Aged Out No longer eligi ble based on patient's age to complete this topic Hepatitis A Vaccines Aged Out No long er eligible based on patient's age to complete this topic IPV Vaccines Aged Out No longer eligi ble based on patient's age to complete this topic Meningococcal B Vaccine Aged Out No l onger eligible based on patient's age to complete this topic Meningococcal Vaccine Aged Out No margarette nba eligible based on patient's age to complete this topic Pneumococcal Vaccine: Pediatrics (0 to 5 Years) and At-Risk Patients (6 to 49) Years Aged Out No longer eligible based on patient's age to complete this topic RSV under 20 months Aged Out No longe r eligible based on patient's age to complete this topic Rotavirus Vaccines Aged Out No longer eligible based on patient's age to complete this topic Procedures Procedure Name Priority Date/Time Associated Diagnosis Comments CASE PRESENTATION, DETAILED AND EXTENSIVE TREATMENT PLANNING Routine 02/16/2025 1:30 PM EDT Secondary dental caries Recurrent dental caries extending into dentin 12 MO RESIN-BASED COMPOSITE - 2 SURF, POSTERIOR Routine 02/16/2025 1:30 PM EDT Secondary dental caries Recurrent dental caries extending into dentin 13 MO RESIN-BASED COMPOSITE - 2 SURF, POSTERIOR Routine 02/16/2025 1:30 PM EDT Secondary dental caries Recurrent dental caries extending into dentin BORDETELLA PERTUSSIS AND BORDETELLA PARAPERTUSSIS, REAL-TIME DNA PCR Routine 01/19/2025 11:23 AM EDT Pharyngitis, unspecified etiology HIV 1/2 ANTIGEN/ANTIBODY, FOURTH GENERATION W/RFL Routine 01/18/2025 11:43 AM EDT Pharyngitis, unspecified etiology MONONUCLEOSIS TEST, QUALITATIVE Routine 01/18/2025 11:43 AM EDT Pharyngitis, unspecified etiology PROPHYLAXIS - ADULT Routine 01/11/2025 1 :00 PM EDT Dental plaque Dental calculus Gingival bleeding INTRAORAL - COMPLETE SERIES OF RADIOGRAPHIC IMAGES Routine 01/11/2025 1:00 PM EDT Dental plaque Teeth missing Dental calculus Gingival bleeding PERIODIC ORAL EVALUATION - ESTABLISHED PATIENT Routine 01/11/2025 1:00 PM EDT HEPATITIS C VIRAL RNA, QUANTITATIVE, REAL-TIME PCR Routine 04/22/2024 3:50 PM EDT Genital sore THINPREP IMAGING PAP REFL HPV MRNA(IF ASCUS,ASC-H,LSIL) Routine 04/19/2024 10:46 AM EDT LGSIL on Pap smear of cervix from Last 3 Months or Most Recently Relevant to Health Maintenance Results * Pertussis Bordetella/ parapertussis PCR (01/19/2025 11:23 AM EDT) Bordetella pertussis DNA Not Detected Not Detected [facility] Bordetella parapertussis DNA Not Detected Not Detected [facility] Comment:This test was devkristyo tashi and its analytical performancecharacteristics have been determined by [employer] [place], [place]. It hasnot been cleared or approved by the U.S. Food and DrugAdministration. This assay has been validated pursuantto the CLIA regulations and is used for clinicalpurposes.THIS TEST WAS PERFORMED AT:[facility] [place] [address]HUADTUNARELY MONIQUE MD,PHD Source Swab [facility] Swab Nasopharyngeal structure / Unknown 01/19/2025 11:23 AM EDT 01/19/2025 2:31 PM EDT us Tanya Funes MD LAB BODY FLUIDS AND STOOLS OR DERABLES Final Result Performing Organization Address City/[facility]/ZIP Co de Phone Number [facility] [address] [place] [phone] * Mononucleosis Test, Qualitative (01/18/2025 11:43 AM EDT) Pathologist [facility] Monotest Negative Negative [facility] Blood Venous blood specimen / Unknown 01/18/2025 11:43 AM EDT 01/18/2025 2:15 PM EDT Tanya Funes MD LAB BLOOD ORDERABLES Final Re sult Performing Organization Address City/[facility] Co de Phone Number [facility] [address] [place] [phone] * HIV-1/2 Antigen and Antibodies, Fourth Generation, with Reflexes (01/18/2025 11:43 AM EDT) [facility] HIV AB/AG Nonreactive Nonreactive [facility] Comment:HIV-1 p24 Ag and/or HIV-1/HIV-2 Ab not detected.A test result that is nonreactive does not exclude thepossibility of exposure to or infection with HIV-1 and/orHIV-2. Nonreactive results in this assay for individualswith prior exposure to HIV-1 and/or HIV-2 may be due toantigen and antibody levels that are below the limit ofdetection of this assay.The [employer] HIV Ag/Ab Combo assay result andsupplemental assay results should be interpreted inconjunction with the patient's clinical presentation,history and other laboratory results. If the results areinconsistent with clinical evidence, additional testing issuggested to confirm the result. Blood Venous blood specimen / Unknown 01/18/2025 11:43 AM EDT 01/18/2025 2:15 PM EDT Tanya Funes MD LAB BLOOD ORDERABLES Final Re sult Performing Organization Address [facility] Co de Phone Number [facility] [address] [place] [phone] * Hepatitis C Viral RNA, Quantitative, Real-Time PCR (04/22/2024 3:50 PM EDT) Hepatitis C Viral Load <15 NOT DETECTED NOT DETECTED IU/mL [facility] HCV Log PCR <1.18 NOT DETECTED NOT DETECTED Log IU/mL [facility] Comment:For additional infor aliya, please refer tohttp://education.[employer]/faq/TQD55i9(This link is being provided for informational/educational purposes only.)THIS TEST WAS PERFORMED AT:[facility] [place] [phone] MOLINA MD Blood 04/22/2024 3:50 PM EDT 04/22/2024 6:06 PM EDT Zora Coley TELEPRINTER LAB BLOOD ORDERABLES Final Res ult Performing Organization Address [facility] Co de Phone Number [facility] [address] [place] [phone] * Pap with reflex HPV (04/19/2024 10:46 AM EDT) HPV nRNA E6/E7 [facility] HPV 16,18/45 [facility] SOURCE: SEE NOTE [facility] Comment:None given Report Status: [facility] Clinical Information: SEE NOTE [facility] Comment:None given LMP: SEE NOTE [facility] Comment:NONE GIVEN Prev. PAP: SEE NOTE [facility] Comment:NONE GIVEN Prev. BX: SEE NOTE [facility] Comment:NONE GIVEN Statement Of Adequacy: SEE NOTE [facility] Comment:Satisfactory for omid luation.Endocervical/transformation zone componentpresent. General Categorization: TNP [facility] Interpretation/Result: SEE NOTE [facility] Comment:Cytology Results: Ne gative for intraepitheliallesion or malignancy. Cytology Comment SEE NOTE [facility] Comment:This Pap test has be en evaluated with computerassisted technology. Breakfast Cook: SEE NOTE [facility] Comment:MSM, CT(ASCP)CT scre ening location: [address] [address] Review Breakfast Cook: SEE NOTE [facility] Comment:DCR, CT(ASCP)CT scre ening location: [place] [address] Pathologist [facility] PAP Infection SEE NOTE [facility] Comment:Fungal organisms mor phologically consistent withCandida spp. See Note SEE NOTE [facility] Comment:EXPLANATORY NOTE:The Pap is a screening test for cervical cancer. It isnot a diagnostic test and is subject to false negativeand false positive results. It is most reliable when asatisfactory sample, regularly obtained, is submittedwith relevant clinical findings and history, and whenthe Pap result is evaluated along with historic andcurrent clinical information.THIS TEST WAS PERFORMED AT:[facility] [address] [phone] MOLINA MD Pap Vial Cervix uteri structure / Unknown 04/19/2024 10:46 AM EDT 04/19/2024 2:27 PM EDT Narrative [facility] - 04/22/2024 10:19 AM EDT SEE SCANNED RESULTS IN EMR us Gretta Reaves CNM LAB CYTOLOGY ORDERABLES F inal Result [facility] [address] [place] [phone] [phone] from Last 3 Months or Most Recently Relevant to Health Maintenance Insurance [place] [facility] [facility] MEDICAID LIMITED ADULT DENTAL - HSN FULL (MEDICAID) Care Teams Machine Tracer Relationship Specialty Start Date End Date Zora Coley FNP [address] [place] [phone] PCP - General Family Medicine 05/18/22
--- OUTSIDE RECORDS SUMMARY | 2025-04-18 16:49 | XMS_ITS | Clinical Summary ---
Author Organization [facility] Address [address] [facility] [place] [phone] Phone Care Team Providers Care Claim Representative Name Role Phone Pcp, Unknown Primary Care Provider Unavailabl e Allergies No known active allergies Medications No known medications Encounters Date Type Department Care Team Description 01/17/2025 3:48 AM EDT - 01/17/2025 6:23 AM EDT Emergency [facility] [address] [place] [address] Abdoulaye Robert, DO Discharge Disposition: Home or Self Care from Last 3 Months Social History Tobacco Use Types Packs/Day Years Used Date Smoking Tobacco: Never Assessed Education Answer Date Recorded Are you interested in more education? Not on néstor e 05/29/2023 Are you concerned about learning? Not on file 05/29/2023 No 05/29/2023 No 05/29/2023 Food Answer Date Recorded Within the past 6 months we worried whether our food would run out before we got money to buy more. Never True 01/17/2025 Within the past 6 months the food we bought just didn't last and we didn't have enough money to get more. Never True Residential Stability Answer Date Recor ded What is your housing situation today? I have chaz sing 01/17/2025 How many times have you move d in the past 12 months? Zero (I did not move) 01/17/2025 Paying for Meds Answer Date Recorded Do you have trouble paying for medicines? No 01/17/2025 Paying Utility Bills Answer Date Record ed Do you have trouble paying your heating or elect ricity bill? No 01/17/2025 Transportation Answer Date Recorded Has the lack of transportati on kept you from medical appointments or from getting medications? No 01/17/2025 Digital Access Answer Date Recorded No 01/17/2025 Yes 01/17/2025 Do you have reliable internet access at home? Ye s 01/17/2025 Do you have a device (e.g., phone, tablet, computer) with a working camera? Yes 01/17/2025 Intimate Partner Violence Answer Date R ecorded Are you denied basic needs s uch as food, clothing, or medical care? No 01/17/2025 In the past 12 months have y ou been in a relationship with a person who hurts, threatens, or tries to control you? No 01/17/2025 Are you denied basic needs s uch as food, clothing, or medical care? No 01/17/2025 In the past 12 months have y ou been in a relationship with a person who hurts, threatens, or tries to control you? No 01/17/2025 Comments Unknown Sex and Gender Information Value Date Recorded Sex Assigned at Choose not to disclose 4:08 AM EDT Legal Sex Female 4:42 PM EDT Gender Identity Choose not to disclose 4:08 AM EDT Sexual Orientation Choose not to disclose 2024 4:06 AM EDT Last Filed Vital Signs Vital Sign Reading Time Taken Comments Blood Pressure 113/68 01/17/2025 5:30 AM EDT Pulse 94 01/17/2025 5:33 AM EDT Temperature 36.8 C (98.2 F) 01/17/2025 5:30 AM EDT Respiratory Rate 20 01/17/2025 5:30 AM EDT Oxygen Saturation 97% 01/17/2025 5:30 AM EDT Inhaled Oxygen Concentration - - Weight 63.5 kg (139 lb 15.9 oz) 01/17/2025 4:35 AM EDT Height 163.8 cm (5' 4.49 ) 01/17/2025 4:35 AM ED T Body Mass Index 23.67 01/17/2025 4:35 AM EDT Plan of Treatment Health Maintenance Due Date Last Done Comments DEPRESSION SCREENING 2010 SMOKING Hx and SMOKELESS TOB ACCO SCREENING 2011 HPV VACCINES (1 - 3-dose series) 2013 HEPATITIS C SCREENING 2016 HIV ONE-TIME SCREENING (18-6 5 YEARS) 2016 PAP SMEAR 2019 COVID-19 VACCINE (2023-2 5 season) 2024 Adult Td,Tdap Booster 07/17/2033 07/17/2023 HEPATITIS A VACCINES Aged Out No long er eligible based on patient's age to complete this topic HIB VACCINES Aged Out No longer eligi ble based on patient's age to complete this topic MENINGOCOCCAL VACCINES (ACWY) Aged Out No longer eligible based on patient's age to complete this topic MENINGOCOCCAL VACCINES (B) Aged Out N o longer eligible based on patient's age to complete this topic PNEUMOCOCCAL VACCINES (0-49 years) Aged Out No longer eligible based on patient's age to complete this topic Medical Devices Not on file Procedures Procedure Name Priority Date/Time Associated Diagnosis Comments STREPTOCOCCUS, GROUP A CULTURE Routine 01/17/2025 4:28 AM EDT RAPID GROUP A STREP SCREEN STAT 01/17/2025 4:28 AM EDT COVID PANDEMIC RESPIRATORY VIRAL ORDER (PRO) STAT 01/17/2025 2:23 AM EDT from Last 3 Months Results * Streptococcus, Group A Culture (01/17/2025 4:28 AM EDT) Pathologist [facility] [place] Special Requests None 01/17/2025 5:08 AM EDT [facility] Group A Strep Culture NEGATIVE FOR GRP A BETA STREPTOCOCCI 01/19/2025 7:29 AM EDT [facility] Throat 01/17/2025 4:28 AM EDT 01/17/2025 5:07 AM EDT us Abdoulaye Robert DO MICROBIOLOGY - GENERAL ORDERA BLES Final Result [address] [address] * Rapid Group A Strep Screen (01/17/2025 4:28 AM EDT) RAPID STREP SCREEN Negative Negative [facility] Comment:A culture for Group A strep has been ordered. Results will follow. Other (Throat) 01/17/2025 4: 28 AM EDT 01/17/2025 4:36 AM EDT us Abdoulaye Robert DO MICROBIOLOGY - GENERAL ORDERA BLES Final Result Performing Organization Address [facility]/ZIP Co de Phone Number [address] [address] * COVID Pandemic Respiratory Viral Order (PRO) (01/17/2025 2:23 AM EDT) Test Ordered COVID, Flu has been ordered [facility] Specimen Source/Descr iption NASOPHARYNGEAL SWAB [facility] Influenza A PCR Not Detected Not Detected [facility] Influenza B PCR Not Detected Not Detected [facility] SARS-CoV 2 (COVID-19) PCR Not Detected Not Detected [facility] Other (Nasopharyngeal swab) 01/17/2025 2:23 AM EDT 01/17/2025 2:26 AM EDT us Abdoulaye Robert DO BODY FLUIDS AND STOOLS ORDERA BLES Final Result Performing Organization Address [facility] Co de Phone Number [address] [phone] from Last 3 Months [facility] [place] [place], [place] [id number] LIMITED SAFETY NET FULL [place] [facility] [place] [address] [place], [place] [id number] LIMITED Member Subscriber Plan / Payer (Ef fective 2023-) Name:Meredith Evans Relation to Subscriber:Self Name:Meredith Evans Payer ID:[id number] Group ID:Not on file Type:Medicaid Address: [address] [facility]ULL [facility] FULL [facility] FULL Care Teams Claim Representative Relationship Specialty Start Date End Date Pcp, Unknown PCP - General 01/17/25 Additional Source Comments The information contained in this document represents components of the legal health record. It is not the complete legal health record.[facility]
== END 2025-04-18 16:42 | disposition home or self-care (01) ==
LOC: HO.HHCLNP 16:41
PROVIDERS: Visit Provider Advanced Practice Midwife
DX: R87.612 Low grade squamous intraepithelial lesion on cytologic smear of cervix (LGSIL) (principal)
CPT/HCPCS: 88175

== ENCOUNTER 2025-08-30 10:29 | Outpatient (REF) | payer MEDICAID, OTHER, SELFPAY ==
--- NOTE | ~2025-08-30 | XR_ITS ---
EXAMINATION: XR CHEST 2 VIEWS HISTORY: cough x 8 weeks COMPARISON: There are no prior studies available for comparison. FINDINGS: PA and lateral views of the chest are submitted. The lungs are expanded and clear. There is no pleural effusion, pneumothorax, or pulmonary vascular congestion. The heart is normal in size. The bones are intact. XR/XR chest 2V IMPRESSION: Normal examination of the chest. Electronically signed by: Jv Wall MD 08/30/2025 10:50 AM ADDISON
[2025-08-30 13:04] LABS: Bacterial Vaginosis PCR NEGATIVE (Negative); Candida Group PCR NOT DETECTED (Not Detect); Candida glab krusei PCR NOT DETECTED (Not Detect); Trichomonas vaginalis PCR NOT DETECTED (Not Detect)
[2025-08-30 13:44] LABS: CT PCR NOT DETECTED (Not Detect.); NG PCR NOT DETECTED (Not Detect.)
== END 2025-08-30 10:30 | disposition home or self-care (01) ==
LOC: HO.HHCX 10:29
PROVIDERS: Visit Provider Registered Nurse
DX: R05.2 Subacute cough (principal); N94.9 Unspecified condition associated with female genital organs and menstrual cycle; Z20.2 Contact with and (suspected) exposure to infections with a predominantly sexual mode of transmission
CPT/HCPCS: 71046; 81515; 87491; 87591

== ENCOUNTER → 2025-08-30 10:30 | Outpatient (BNV) | payer SELFPAY | PROVIDERS: Visit Provider Radiology Diagnostic Radiology | DX: R05.9 Cough, unspecified (principal) | CPT/HCPCS: 71046 ==

== ENCOUNTER 2025-08-31 08:51 | Outpatient (REF) | payer MEDICAID, OTHER, SELFPAY ==
[2025-08-31 11:04] LABS: MANUAL DIFF FLAG NO
[2025-08-31 11:11] LABS: Hematocrit 40.0 % (37.0-47.0); Hemoglobin 13.4 g/dl (12.0-16.0); Imm Gran Abs Auto 0.02 X10*3/uL (0.00-0.03); Imm Gran Pct Auto 0.4 % (0.0-0.4); Lymphocytes Absolute Auto 2.1 X10*3/uL (1.2-4.9); Mean Corpuscular HGB Conc 33.5 g/dl (31.0-35.0); Mean Corpuscular Hemoglobin 28.3 pg (27.0-33.0); Mean Corpuscular Volume 84.4 fL (80.0-98.0); NRBC Abs Auto 0.000 X10*3/uL (0.0-0.012); NRBC Pct Auto 0.0 /100WBC (0.0-0.2); Platelet Count 287 X10*3/uL (160-400); Red Blood Count 4.74 X10*6/uL (4.20-5.50); White Blood Count 5.3 X10*3/uL (4.8-10.8)
[2025-08-31 11:33] LABS: Alanine Aminotransferase 16 U/L (0-31); Albumin Level 4.4 g/dL (3.5-5.0); Alkaline Phosphatase 45 U/L (39-117); Anion Gap 11 (12-20); Aspartate Amino Transferase 25 U/L (5-31); Blood Urea Nitrogen 13 mg/dL (9-16); Calcium 9.3 mg/dL (8.4-10.2); Carbon Dioxide 26 mmol/L (22-29); Chloride 106 mmol/L (96-108); Cholesterol 187 mg/dL (<200); Estimated Glomerular Filt Rate > 60; HDL Cholesterol 69 mg/dL (>40); Hemoglobin A1C 73.1493 umol/L; Potassium 3.7 mmol/L (3.3-5.1); Sodium 139 mmol/L (135-145); Total Protein 8.3 g/dL (6.5-8.0); Triglycerides 108 mg/dL (<150)
[2025-08-31 11:43] LABS: HIV Num 1 0.09 S/CO (0.00-0.99)
[2025-09-03 18:39] LABS: TS Negative Control Passed; TS Panel A 0; TS Panel B 0; TS Positive Control Passed; TSpotTB Negative (Negative)
[2025-09-04 11:58] LABS: HCV Log PCR <1.18 NOT DETECTED Log IU/mL (NOT DETECTED); HepC Viral Load <15 NOT DETECTED IU/mL (NOT DETECTED)
== END 2025-08-31 08:52 | disposition home or self-care (01) ==
LOC: HO.HHCL 08:51
PROVIDERS: PCP Registered Nurse; Visit Provider Registered Nurse
DX: Z00.00 Encounter for general adult medical examination without abnormal findings (principal); Z11.59 Encounter for screening for other viral diseases; Z11.4 Encounter for screening for human immunodeficiency virus [HIV]; Z11.1 Encounter for screening for respiratory tuberculosis; Z11.3 Encounter for screening for infections with a predominantly sexual mode of transmission; R05.2 Subacute cough
CPT/HCPCS: 36415; 80053; 80061; 83036; 84443; 85025; 86481; 86592; 87389; 87522